=== PATIENT | female | born 1955 | race African-American/Black ===

== ENCOUNTER 2025-01-07 00:22 | Emergency (ER) | payer MEDICARE, SELFPAY ==
[2025-01-07 00:58] VITALS: BP 106/68; BP 121/72; PULSE 67; RESP 16; TEMP 36.4; O2SAT 100; BMI 22.7
--- NOTE | 2025-01-07 00:58 | ECG_ITS ---
Test Reason : SYNCOPE Blood Pressure : */* mmHG Vent. Rate : 69 BPM Atrial Rate : 69 BPM P-R Int : 188 ms QRS Dur : 80 ms QT Int : 432 ms P-R-T Axes : 74 65 82 degrees QTcB Int : 462 ms Normal sinus rhythm Normal ECG No previous ECGs available Referred By: Generic ED Physician Electronically Signed By: Elliot Acuna
--- NOTE | 2025-01-07 01:11 | ED_ITS ---
HPI - Syncope General Chief Complaint: Syncope Stated Complaint: Syncope, incontinent, diarrhea all day Time Seen by Provider: 01/07/25 01:09 Source: patient Mode of arrival: ambulatory Limitations: no limitations History of Present Illness ED Provider: HPI narrative: Patient history of pancreatic insufficiency, asthma constipated for last 1 week took Dulcolax and had about 5 or 6 loose bowels today was standing in the kitchen fell lightheaded almost passed out [employer]SI[employer]IST was next to the patient who lowered her down patient just feel weak denied any abdominal pain no chest pain no nausea no headache no palpitation Related Data Allergies Allergy/AdvReac Type Severity Reaction Status Date / Time No Known Allergies Allergy Verified 01/07/25 01:02 Review of Systems 2 Review of Systems: Yes all other systems are reviewed and are negative [facility] Past Medical History Medical History (Updated 01/08/25 @ 00:01 by Background Daemon) IBS (irritable bowel syndrome) Lyme disease Social History Social History Alcohol intake: current Alcohol intake frequency: holidays/special occasions only Alcohol type: wine Smoked in Last 30 Days: No Use of substances other than those prescribed or required for medical reasons: No Advance Directives: No Advance Directives Information Provided: Yes Do you have a plan to hurt others: No Plan Physical Exam 2 Vital Signs: Vital Signs: Last Vital Signs Temp 97.7 F 01/07/25 06:01 Pulse 72 01/07/25 06:01 Resp 12 01/07/25 06:01 BP 104/61 01/07/25 06:01 Pulse Ox 97 01/07/25 06:01 O2 Del Method Room Air 01/07/25 06:01 BMI result Body Mass Index 22.7 Appearance: Alert. Oriented X3. No acute distress. Eyes: PERRLA, No Nystagmus ENT: Pharynx normal. Oral Mucosa moist Neck: Normal inspection. Neck supple. CVS: Normal heart rate and rhythm. Pulses normal. Respiratory: No respiratory distress. Equal air entry bilateral, no wheezing/rales/rhonchi Abdomen: Soft and nontender. Bowel sounds are present, no mass palpable, no CVA tenderness Skin: Skin warm and dry. Normal skin color. Normal skin turgor. Extremities: No lower extremity edema. No calf tenderness Neuro: Oriented X 3. No motor deficit. No sensory deficit.No cerebellar signs , cranial nerves II-XII intact Medications Administered Discontinued Medications Generic Name Dose Route Start Last Admin Trade Name Neisha PRN Reason Stop Dose Admin Sodium Chloride 1,000 mls @ 999 mls/hr 01/07/25 02:20 01/07/25 04:00 Ns IV 01/07/25 03:20 Infused .Q1H1M ONE Infusion Medical Decision Making Medical Decision Making [facility] Narrative: No signs of injury labs are stable likely vasovagal will discharge patient Lab Data [facility] Lab Attestation statement: I reviewed the patient's lab results. 01/07/25 01:29 01/07/25 01:29 Labs: Lab Results 01/07/25 01/07/25 Range/Units 01:29 02:45 WBC 10.0 (4.8-10.8) X10*3/uL RBC 4.32 (4.20-5.50) X10*6/uL Hgb 13.3 (12.0-16.0) g/dl Hct 40.2 (37.0-47.0) % MCV 93.1 (80.0-98.0) fL MCH 30.8 (27.0-33.0) pg MCHC 33.1 (31.0-35.0) g/dl RDW 14.6 (11.0-16.0) % Plt Count 237 (160-400) X10*3/uL MPV 9.1 L (9.4-12.3) fL Immature Gran % (Auto) 0.2 (0.0-0.4) % Neut % (Auto) 63.7 (45-73) % Lymph % (Auto) 24.2 (20-40) % [place] % (Auto) 9.4 (2-11) % Eos % (Auto) 2.2 (0-4) % Baso % (Auto) 0.3 (0-2) % Lymph # (Auto) 2.4 (1.2-4.9) X10*3/uL [place] # (Auto) 0.9 (0.1-1.2) X10*3/uL Eos # (Auto) 0.2 (0.0-0.4) X10*3/uL Baso # (Auto) 0.0 (0.0-0.2) X10*3/uL Abs Immat Gran (auto) 0.02 (0.00-0.03) X10*3/uL Absolute Neuts (auto) 6.4 (2.0-8.3) x10*3/uL Absolute Nucleated RBC 0.000 (0.0-0.012) X10*3/uL Nucleated RBC % (auto) 0.0 (0.0-0.2) /100WBC Sodium 140 (135-145) mmol/L Potassium 3.9 (3.3-5.1) mmol/L Chloride 109 H (96-108) mmol/L Carbon Dioxide 22 (22-29) mmol/L Anion Gap 13 (12-20) BUN 21 H (9-16) mg/dL Creatinine 0.94 (0.5-1.4) mg/dL Estim Creat Clear Calc 52.1 Estimated GFR 59 Random Glucose 114 (60-115) mg/dL Calcium 9.6 (8.4-10.2) mg/dL Total Bilirubin 0.3 (0.0-1.0) mg/dL AST 27 (5-31) U/L ALT 12 (0-31) U/L Alkaline Phosphatase 89 (39-117) U/L Total Protein 8.1 H (6.5-8.0) g/dL Albumin 3.8 (3.5-5.0) g/dL Urine Color Yellow Urine Appearance Cloudy Urine pH 5.5 (5.0-9.0) Ur Specific Goff 1.015 (1.005-1.025) Urine Protein Negative (Neg-Trace) mg/dL Urine Glucose (UA) Negative (Negative) mg/dL Urine Ketones Negative (Negative) mg/dL Urine Blood Negative (Negative) Urine Nitrite Negative (Negative) Ur Leukocyte Esterase Moderate (2+) H (Negative) Urine RBC 0-2 (0-2) /HPF Urine WBC 11-20 (0-5) /HPF Ur Squamous Epith Cells 6-10 (0-2) /HPF Calcium Oxalate Crystal Present Urine Bacteria 2+ (None Seen) Hyaline Casts 0-2 (0-2) /LPF Influenza Type A (PCR) NEGATIVE (Negative) Influenza Type B (PCR) NEGATIVE (Negative) RSV RNA Qual (PCR) NEGATIVE (Negative) SARS-CoV-2 RNA (RT-PCR) NEGATIVE (Negative) Discharge Plan Discharge Clinical Impression: Vasovagal syncope, Dehydration Patient Disposition: Home, Self-Care Instructions: Near Syncope (ED) Additional Instructions: Drink plenty of fluid You had low blood pressure as you had diarrhea and lost lot of fluids Report to ER if diarrhea continues Interventions: ED Discharge Assessment Last Done: 01/07/25 06:01 Discharge Date/Time: 01/07/25 06:38 Print Language: Wallisian
[2025-01-07 01:35] LABS: Basophils Percent Auto 0.3 % (0-2); Eosinophils Absolute Auto 0.2 X10*3/uL (0.0-0.4); Eosinophils Percent Auto 2.2 % (0-4); Hematocrit 40.2 % (37.0-47.0); Hemoglobin 13.3 g/dl (12.0-16.0); Imm Gran Abs Auto 0.02 X10*3/uL (0.00-0.03); Imm Gran Pct Auto 0.2 % (0.0-0.4); Lymphocytes Absolute Auto 2.4 X10*3/uL (1.2-4.9); Lymphocytes Percent Auto 24.2 % (20-40); MANUAL DIFF FLAG NO; Mean Corpuscular HGB Conc 33.1 g/dl (31.0-35.0); Mean Corpuscular Hemoglobin 30.8 pg (27.0-33.0); Mean Corpuscular Volume 93.1 fL (80.0-98.0); Mean Platelet Volume 9.1 fL (9.4-12.3); Monocytes Absolute Auto 0.9 X10*3/uL (0.1-1.2); Monocytes Percent Auto 9.4 % (2-11); Neutrophils Absolute Auto 6.4 x10*3/uL (2.0-8.3); Neutrophils Percent Auto 63.7 % (45-73); Platelet Count 237 X10*3/uL (160-400); Red Blood Count 4.32 X10*6/uL (4.20-5.50); Red Cell Distribution Width 14.6 % (11.0-16.0)
[2025-01-07 01:58] LABS: Alanine Aminotransferase 12 U/L (0-31); Albumin Level 3.8 g/dL (3.5-5.0); Anion Gap 13 (12-20); Aspartate Amino Transferase 27 U/L (5-31); Bilirubin Total 0.3 mg/dL (0.0-1.0); Blood Urea Nitrogen 21 mg/dL (9-16); Calcium 9.6 mg/dL (8.4-10.2); Carbon Dioxide 22 mmol/L (22-29); Chloride 109 mmol/L (96-108); Creatinine Clr Calc Pharmacy 52.1; Estimated Glomerular Filt Rate 59; Glucose Random 114 mg/dL (60-115); Potassium 3.9 mmol/L (3.3-5.1); Sodium 140 mmol/L (135-145); Total Protein 8.1 g/dL (6.5-8.0)
[2025-01-07 02:19] LABS: Influenza A PCR NEGATIVE (Negative); Influenza B PCR NEGATIVE (Negative); Resp Syncy Virus RNA Qual PCR NEGATIVE (Negative); SARS COV2 PCR INHOUSE NEGATIVE (Negative)
[2025-01-07 02:31] VITALS: BP 103/63; BP 82/51; BP 92/59; PULSE 68; PULSE 73
[2025-01-07 02:39] LABS: Alkaline Phosphatase 89 U/L (39-117)
[2025-01-07 02:41] VITALS: O2SAT 100
[2025-01-07] MEDS: 0.9 % Sodium Chloride 1,000 ML 999 ML IV (02:46)
[2025-01-07 02:50] VITALS: BP 121/71; PULSE 61; RESP 12; TEMP 36.9; O2SAT 98
[2025-01-07 02:53] LABS: Appearance Urine Cloudy; Color Urine Yellow; Glucose Urine UA Negative (Negative); Leukocyte Esterase Urine Moderate (2+) (Negative); Nitrite Urine Negative (Negative); PH 5.5 (5.0-9.0); Specific Gravity - Urine 1.015 (1.005-1.025); UMIC TRIGGER UACC YES; Urine Blood Negative (Negative); Urine Ketones Negative (Negative); Urine Protein Negative (Neg-Trace)
[2025-01-07 03:04] VITALS: PULSE 64
[2025-01-07 03:22] LABS: Bacteria Urine 2+ (None Seen); Calcium Oxalate Crystals Urine Present; Hyaline Casts Urine 0-2 /LPF (0-2); RBC Urine 0-2 /HPF (0-2); UACC Culture Trigger YES
--- OUTSIDE RECORDS SUMMARY | 2025-01-07 03:36 | XMS_ITS | Encounter Summary ---
Author Organization [facility] Address [address] [place] [id number] Care Team Providers Care Clinical Medical Transcriptionist Name Role Phone Donna Starks OBI Primary Care Provider Jamie Cedillo MD Unavailable Kaitlin Zayas APRN Unavailable Nayeli Tucker [facility] Unavailable [phone] Reason for Visit * Reason Onset Date Comments Medication Refill 08/15/2024 Encounter Details Date Type Department Care Team (Late st Contact Info) Description 08/15/2024 Refill [facility] Geriatric[facility] [address] [place] [phone] Jamie Cedillo MD [address] [place] [id number] nutritional deficiency Social History Tobacco Use Types Packs/Day Years Used Date Smoking Tobacco: Never Smokeless Tobacco: Never Alcohol Use Standard Drinks/Week Comments Not Currently 0 (1 standard drink = 0.6 oz pur e alcohol) rarely AUDIT-C Answer Date Recorded Q1: How often do you have a drink containing alcohol? Never 05/24/2024 Q2: How many drinks containi ng alcohol do you have on a typical day when you are drinking? Patient does not drink Q3: How often do you have si x or more drinks on one occasion? Never 05/24/2024 PHQ-2 Answer Date Recorded PHQ-2 Total Score 1 02/23/2024 Sex and Gender Information Value Date Recorded Sex Assigned at Female 11/10/2024 4:52 PM EST Gender Identity Female 12/16/2022 2:55 PM EST Sexual Orientation Choose not to disclose 2022 2:55 PM EST documented as of this encounter Plan of Treatment Upcoming Encounters Date Type Department Care Team (Late st Contact Info) Description 03/07/2025 10:00 AM EDT Telemedicine [facility] [address] [facility] [address] [place] [address] Kartik Gomes MD [address] [facility] [address] [place] [address] documented as of this encounter Visit Diagnoses Diagnosis B12 nutritional deficiency Other B-complex deficiencies documented in this encounter Care Teams Clinical Medical Transcriptionist Relationship Specialty Start Date End Date Donna Starks APRN [address] [place] [address] PCP - General Family Medicine 10/13/22 Jamie Cedillo MD [address] [place] [address] Geriatric Medicine 03/01/24 Kaitlin Zayas APRN [address] [place] [address] Nurse Practitioner Psychiatry, General 05/24/24 Nayeli Tucker LCSW [address] [place], [place] [phone] Computer Hardware Engineer Social Work 11/15/24 documented as of this encounter
--- OUTSIDE RECORDS SUMMARY | 2025-01-07 03:36 | XMS_ITS | Clinical Summary ---
Author Organization [facility] Address [address] [place] [address] Care Team Providers Care Offline Editor Name Role Phone Donna Starks APRN Primary Care Provider [phone] Jamie Cedillo MD Unavailable [phone] Kaitlin Zayas APRN Unavailable Nayeli Tucker LCSW Unavailable Allergies No known active allergies Medications Medication Sig Dispensed Refills Start Date End Date Status saccharomyces boulardii (FLORASTOR) 250 MG capsule Take 1 capsule (250 mg total) by mouth every day after lunch. Active multivitamin Tab tablet Take 1 tablet by mouth every morning. Active CALCIUM MAGNESIUM 750 PO Take 1 tablet by mouth every morning. Active baclofen (LIORESAL) 10 MG tabletIndications :Arthritis of left hip Take 1 tablet (10 mg total) by mouth 3 (three) times a day as needed for muscle spasms. 42 tablet 2 Active acetaminophen (TYLENOL) 325 MG tabletIndications :Arthritis of left hip Take 3 tablets (975 mg total) by mouth every 8 (eight) hours around the clock. Change to as needed after 2 weeks for mild pain/fever as pain control improves. 270 tablet 2 Active aspirin enteric coated (ECOTRIN LOW STRENGTH) 81 MG EC tabletIndications :Arthritis of left hip Take 1 tablet (81 mg total) by mouth every evening with dinner. Do not start before May 11, 2022. 2 Active senna-docusate (SENNA-S) 8.6-50 MGIndications:Art hritis of left hip Take 2 tablets by mouth nightly. Take as directed while using narcotic pain medication. Hold for loose stool. 60 tablet 3 Active fluticasone (FloNASE) 50 mcg/spray nasal sprayIndications: Moderate persistent asthma without complication 1 spray into each nostril 2 (two) times a day. 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 5 mL 1 3 Active albuterol (PROAIR RESPICLICK) 108 (90 Base) MCG/ACT inhalerIndication s:Moderate persistent asthma without complication Inhale 1 puff 4 times daily (every 6 hours) as needed for wheezing. Rarely uses 1 each 3 3 Active sodium-potassium- magnesium sulfates (Suprep Bowel Prep Kit) 17.5-3.13-1.6 GM/177ML Solution solutionIndicatio ns:Colon cancer screening Follow directions provided by physician's office. 354 mL 4 Active potassium phosphate and sodium phosphate (PHOS-NAK) 280-160-250 MG Pack packet Take by mouth. Active cyanocobalamin (VITAMIN B-12) 500 MCG tabletIndications :B12 nutritional deficiency Take 1 tablet (500 mcg total) by mouth daily. 90 tablet 4 Active fluticasone-salme terol (Advair HFA) 230-21 MCG/ACT inhalerIndication s:Moderate persistent asthma without complication Inhale 1 puff 2 (two) times a day. 12 g 1 4 Active Trintellix 20 MG tabletIndications :Attention deficit hyperactivity disorder (ADHD), predominantly inattentive type TAKE ONE TABLET BY MOUTH DAILY 90 tablet 2 4 Active amLODIPine (NORVASC) 5 MG tabletIndications :Raynaud's Disease Take 1 tablet (5 mg total) by mouth nightly. 90 tablet 1 4 Active vitamin B complex (b complex vitamins) capsuleIndication s:Severe episode of recurrent major depressive disorder, with psychotic features (HCC) Take 1 capsule by mouth every morning. Pt takes liquid 30 capsule 4 Active amphetamine-dextr oamphetamine (ADDERALL) 20 MG tabletIndications :Attention deficit hyperactivity disorder (ADHD), predominantly inattentive type Take 1 tablet (20 mg total) by mouth 2 (two) times a day. Max Daily Amount: 40 mg 60 tablet 4 Active buPROPion (WELLBUTRIN XL) 150 MG 24 hr tabletIndications :Depression, unspecified depression type Take 1 tablet (150 mg total) by mouth every morning. Swallow whole; do not crush, chew, or divide. 60 tablet 1 4 Active traZODone (DESYREL) 50 MG tabletIndications :Insomnia, unspecified type Take 1 tablet (50 mg total) by mouth nightly. Take 1/2 tab (25mg) at bedtime. Take an additional 1/2 tab (25mg) if needed. 90 tablet 1 5 Active QUEtiapine (SEROquel) 25 MG tabletIndications :Insomnia, unspecified type,Severe episode of recurrent major depressive disorder, with psychotic features (HCC) Take 1 tablet (25 mg total) by mouth nightly. 90 tablet 1 5 Active cloNIDine (CATAPRES) 0.2 MG tabletIndications :Anxiety disorder, unspecified type Take 1 tablet (0.2 mg total) by mouth daily on an empty stomach. 30 tablet 1 5 Active plecanatide (TRULANCE) 3 MG tabletIndications :Irritable bowel syndrome with constipation Take 1 tablet (3 mg total) by mouth daily. 30 tablet 3 5 Active prucalopride succinate (MOTEGRITY) 2 MG tabletIndications :Constipation, unspecified constipation type Take 1 tablet (2 mg total) by mouth daily. 30 tablet 3 12/28/19 25 Discontinued traZODone (DESYREL) 50 MG tabletIndications :Insomnia, unspecified type Take 1 tablet (50 mg total) by mouth nightly. Take 1/2 tab (25mg) at bedtime. Take an additional 1/2 tab (25mg) if needed. 90 tablet 1 4 12/16/19 25 Discontinued(Re order) QUEtiapine (SEROquel) 25 MG tabletIndications :Insomnia, unspecified type,Severe episode of recurrent major depressive disorder, with psychotic features (HCC) Take 1 tablet (25 mg total) by mouth nightly. 90 tablet 1 4 12/16/19 25 Discontinued(Re order) prucalopride succinate (Motegrity) 2 MG tablet Take 1 tablet (2 mg total) by mouth daily. 12/28/19 Discontinued cloNIDine (CATAPRES) 0.2 MG tabletIndications :Anxiety disorder, unspecified type TAKE 1 TABLET BY MOUTH DAILY ON AN EMPTY STOMACH 30 tablet 1 4 12/22/19 25 Discontinued(Re order) Tenapanor HCl (IBSRELA) 50 MG tabletIndications :Irritable bowel syndrome with constipation Take 1 tablet (50 mg total) by mouth 2 (two) times a day. Take immediately prior to breakfast or the first meal of the day and immediately prior to dinner 180 tablet 5 12/28/19 25 Discontinued Active Problems Problem Noted Date Diagnosed Date Short-term memory loss 04/29/2023 Constipation 04/29/2023 Assessment & Plan (10/12/2024 10:15 PM EST): Recommend increasing hydration and taking more fiber in diet. Assessment & Plan (04/29/2023 9:03 AM EDT): Jane has chronic constipation unrelieved with OTC treatment. Will start a trial of amitiza Essential hypertension 04/16/2023 Overview (10/12/2024): . Assessment & Plan (10/12/2024 10:12 PM EST): Blood pressure is normal. No side effects. Renal function is stable. Patient will continue amlodipine. DASH diet Recommend a minimum of 150 minutes of exercise a week. Assessment & Plan (02/14/2024 7:07 PM EDT): Stable. Blood pressure is normal. No side effects. Patient will continue with current regimen. DASH diet Recommend a minium of 150 minutes of exercise a week. Assessment & Plan (10/15/2023 4:00 PM EST): Blood pressure is normal. No side effects. Patient will continue with current regimen. DASH diet Recommend a minium of 150 minutes of exercise a week. Assessment & Plan (04/16/2023 12:14 PM EDT): Blood pressure is normal. No side effects. Patient will continue with current regimen. DASH diet Recommend a minium of 150 minutes of exercise a week. Migraine headache 10/13/2022 S/P bilateral hip replacements 10/13/2022 Raynaud's syndrome without gangrene 05/10/2022 Assessment & Plan (10/12/2024 10:10 PM EST): Cancer demonstrating stocking syndrome.. Lifestyle and keeping extremities warm at all times. Will continue to thank Chronic primary angle-closur e glaucoma of both eyes, mild stage 05/10/2022 Assessment & Plan (04/16/2023 10:39 AM EDT): She will continue to see her retina specialist. Unspecified glaucoma 05/10/2022 Arthritis of left hip 05/09/2022 Anxiety disorder, unspecified 05/09/2022 Primary generalized (osteo)arthritis 05/09/2022 Stress incontinence (female) (male) 05/09/2022 Unspecified asthma, uncomplicated 05/09/2022 Assessment & Plan (10/12/2024 10:07 PM EST): Stable on Advair and as needed albuterol. Assessment & Plan (02/14/2024 7:06 PM EDT): Stable on current regimen. Assessment & Plan (10/15/2023 4:00 PM EST): Table on Flovent. Assessment & Plan (04/16/2023 12:14 PM EDT): Felicity reports increased use of her rescue inhaler minimal 4 days a week. At this time will restart Flovent. Arthritis of right hip 02/17/2022 Recurrent major depressive disorder, in remissio n 11/30/2021 Assessment & Plan (02/14/2024 7:07 PM EDT): Jane remains stable on Trintellix. Assessment & Plan (10/15/2023 4:01 PM EST): Stable we will continue Trintellix daily. Assessment & Plan (04/29/2023 9:04 AM EDT): PHQ-9 total Score 10 JASON-7 total score 6. Assessment & Plan (04/16/2023 12:15 PM EDT): PHQ-9 Total Score: (!) 10 JASON-7 Total Score: 6 Felicity is reporting increased depressed thoughts. This time will increase Trintellix to 15 mg daily. Recommend talk therapy Follow-up in 3 months. Attention-deficit hyperactivity disorder, unspec ified type 11/30/2021 Assessment & Plan (10/12/2024 10:17 PM EST): She will talk to night stable on Adderall. Assessment & Plan (10/15/2023 4:01 PM EST): Stable on Adderall. Depression, unspecified 11/30/2021 Lyme disease, unspecified 11/30/2019 Encounters Date Type Department Care Team Description 12/28/2024 Orders Only [facility] [address] [place] [address] Patience Alaniz APRN Irritable bowel syndrome with constipation (Primary Dx) 12/27/2024 Telephone [facility] [address] [place] [address] Patience Alaniz APRN 12/22/[address] [place] [address] RaudelDonna OBI Sood Anxiety disorder, unspecified type 12/20/2024 10:30 AM EST Office Visit [facility] [address] [place] [address] Patience Alaniz APRN Irritable bowel syndrome with constipation (Primary Dx); Colon cancer screening; Bloating; Dysphagia, unspecified type; Lower abdominal pain 12/20/2024 Orders Only [facility] [address] [facility] [address] Patience Alaniz APRN 11/14/2024 9:00 AM EST Office Visit [facility] [address] [phone] Kaitlin Zayas APRN Depression, unspecified depression type (Primary Dx); Anxiety; Attention deficit hyperactivity disorder (ADHD), unspecified ADHD type; Caregiver burden; Subjective memory complaints; Insomnia, unspecified type 11/14/2024 Travel 10/24/[address] [place] [address] Donna Starks, OBI Anxiety disorder, unspecified type 10/22/[address] [phone] Donna Starks, EMPLOYMENT EVALUATOR/CASE MANAGER Anxiety disorder, unspecified type 10/20/2024 Scanned Document [address] [address] Donna StarksGALAN 10/12/2024 9:45 AM EST Office Visit [address] [place] [phone] Donna Starks Barrie, EMPLOYMENT EVALUATOR/CASE MANAGER Bilateral leg cramps (Primary Dx); Attention deficit hyperactivity disorder (ADHD), predominantly inattentive type; Essential hypertension; Mild intermittent asthma without complication; Raynaud's syndrome without gangrene; Constipation, unspecified constipation type 10/12/2024 Travel from Last 3 Months Immunizations Name Administration Dates Next Due Covid-19 MRNA Primary Series Vaccine - Pfizer 12+ Demarcus-Sucrose 02/10/2022 Covid-19 MRNA Vaccine - Pfiz er 12+ (Purple Cap) 09/13/2021,03/04/2021,02/11/2021,2020,01/05/2021 Influenza (AFLURIA/FLUZONE) Inactivated/Split Quadrivalent with Preservative IM 09/13/2021,09/01/2020 Influenza Inactivated/Split Preservative Free IM 08/08/2022 Pneumococcal Conjugate 20-Valent 02/10/2022 Family History Medical History Relation Name Comments Cancer Brother testicular Heart attack Father Stroke Father Alzheimer's disease Mother Deep vein thrombosis Mother Kidney disease Mother Pancreatic cancer Mother Thyroid disease Mother Relation Name Status Comments Brother Alive Father Alive Mother Sister Alive Social History Tobacco Use Types Packs/Day Years Used Date Smoking Tobacco: Never Smokeless Tobacco: Never Tobacco Cessation:Counseling Given: Not Answered Alcohol Use Standard Drinks/Week Comments Not Currently [...] not to disclose 2022 2:55 PM EST Last Filed Vital Signs Vital Sign Reading Time Taken Comments Blood Pressure 111/62 12/20/2024 10:47 AM EST Pulse 88 10/12/2024 9:56 AM EST Temperature 36.2 ??C (97.1 ??F) 10/12/2024 9:56 AM ES T Respiratory Rate 18 10/12/2024 9:56 AM EST Oxygen Saturation 99% 10/12/2024 9:56 AM EST Inhaled Oxygen Concentration - - Weight 63.5 kg (140 lb) 12/20/2024 10:47 AM EST Height 167.6 cm (5' 6 ) 12/20/2024 10:47 AM EST Body Mass Index 22.6 12/20/2024 10:47 AM EST Plan of Treatment Upcoming Encounters Date Type Department Care Team (Late st Contact Info) Description 03/07/2025 10:00 AM EDT Telemedicine [facility] [address] [phone] Kartik Gomes MD [address] [facility] [address] [place] [address] Health Maintenance Due Date Last Done Comments Physical 1972 DTaP/Tdap/Td Vaccines (1 - Tdap) 1973 Zoster (Shingles) Vaccine (1 of 2) 2004 RSV Vaccine 60 years and older and Patients (1 - Risk 60-74 years 1-dose series) 2014 Annual Wellness Visit 12/18/2023 12/17/2022, 022 Influenza Vaccine 06/30/2024 08/08/2022, , 09/01/2020 COVID-19 Vaccine ( season) 2024 02/10/2022, 09/13/2021, 03/04/2021, Additional history exists DXA Bone Density (Females,Ages 65 and older) 04/01/2026 04/01/2024, 12/03/2022 (Previously Completed) Mammogram 04/01/2026 04/01/2024, 02/0 01/2023, 12/03/2022 (Previously Completed) Colonoscopy 09/14/2034 09/14/2024, 01/22/2024 Pneumococcal Vaccines 50+ Completed 02/10/2022 Hepatitis C Virus Screening Completed 03/08/2024 Hepatitis B Vaccines Aged Out No long er eligible based on patient's age to complete this topic Goals Goal Patient Goal Type Associated Problems Recent Progress Patient-Stated? Author Patient-Stated Goal: I sometimes ruminate about dark in the winter. Care Plan Need for Continued Psychiatric Medication Management No Carucci, Pari Krupa Patient will report symptoms have been significantly reduced and no longer interfere with their functioning, symptoms will have been stabilized without the need for a higher level of care for at least one year. Care Plan Need for Continued Psychiatric Medication Management Pari Swanson Patient-reported Measure Care Plan Need for Continued Psychiatric Medication Management Pari Swanson Note: Patient will report at least a 1 point increase on the MARS-12 outcome measure item (#1) I am hopeful about the future on the next administration of the measure. Patient will verbalize a commitment to engage in 1 or more positive activities over the next 3 months and report progress in the future appointments Frequency: Every 12 weeks or earlier if clinically indicated Duration: 20-60 minute appointment Modality: Medication Management Will identify and work to reduce the impact of symptoms on functioning by focusing on recovery and assisting the patient in making informed decisions regarding the treatment options Care Plan Need for Continued Psychiatric Medication Management No Pari Ramon Note: ?? Frequency: Every 12 weeks or earlier if clinically indicated ?? Duration: 20-60 minute appointment ?? Modality: Medication Management Applies to all interventions, unless otherwise indicated Develop a healthy, rewarding, day-to-day pattern of activities and sleep that leads to the alleviation of, and helps prevent the relapse of, mood episodes. Care Plan Need for Continued Psychiatric Medication Management Pari Swanson Note: Frequency: every 12 weeks or earlier if clinically indicated Duration: 30-minute appointment Modality: med management Medical Devices Implanted Type Area Environmental Educator Device Identifier Shelf Expiration Date Model / Serial / Lot 723-10-36e Trident 10 X 3 Insert 36mm Id - [id number] Implanted:Qty : 1 on 02/17/2022 by Juan Cast MD at [facility] Joint Prosthesis Right: Hip [employer] 04/18/2026 723-10-3 6E / / [id number] 702-04-52e Shell Acetabular 52mm Hip Ch Tritanium Trdnt 2 E Sterl - [id number] Implanted:Qty : 1 on 02/17/2022 by Juan Cast MD at [facility] Joint Prosthesis Right: Hip [employer] 11/11/2026 702-04-5 2E / / [id number] Stem Femoral 105mm Pf Acld 2 V40 Purefix Ti 127d 4 42mm High - [id number] Implanted:Qty : 1 on 02/17/2022 by Juan Cast MD at [facility] Joint Prosthesis Right: Hip [employer] 01/14/2027 6721-043 5 / / [id number] 6570-0-436 Head Femoral -2.5mm Offset Taper 36mm Hip Blx D V40 Sterl - [id number] Implanted:Qty : 1 on 02/17/2022 by Juan Cast MD at [facility] Joint Prosthesis Right: Hip [employer] 08/22/2026 6570-0-4 36 / / [id number] 702-04-52e Shell Acetabular 52mm Hip Ch Tritanium Trdnt 2 E Sterl - [id number] Implanted:Qty : 1 on 05/09/2022 by Juan Cast MD at [facility] Joint Prosthesis Left: Hip [employer] 01/30/2027 702-04-5 2E / / [id number] 723-10-36e Insert Acetabular 36mm 10d E Hip X3 Trdnt - [id number] Implanted:Qty : 1 on 05/09/2022 by Juan Cast MD at [facility] Joint Prosthesis Left: Hip [employer] 03/18/2027 723-10-3 6E / / [id number] Stem Femoral 105mm Pf Acld 2 V40 Purefix Ti 127d 4 42mm High - [id number] Implanted:Qty : 1 on 05/09/2022 by Juan Cast MD at [facility] Joint Prosthesis Left: Hip [employer] 04/01/2027 6721-043 5 / / [id number] 6570-0-136 Head Femoral +0mm Offset Taper 36mm Hip Blx D V40 Sterl - [id number] Implanted:Qty : 1 on 05/09/2022 by Juan Cast MD at [facility] Joint Prosthesis Left: Hip [employer] 02/04/2027 6570-0-1 36 / / [id number] Screw Bone Trdnt 2 35mm 6.5mm Lp Hex Sterl - [id number] Implanted:Qty : 1 on 02/17/2022 by Juan Cast MD at [facility] Screw Right: Hip [employer] [id number] 08/26/2026 7030-653 5 / / [id number] Screw Implanted:Qty : 1 on 05/09/2022 by Juan Cast MD at [facility] Left: Hip [employer] 09/07/2023 7030-654 0 / / [id number] Procedures Procedure Name Priority Date/Time Associated Diagnosis Comments XR ABDOMEN SINGLE VIEW KUB Routine 12/20/2024 12:19 PM EST BREATH HYDROGEN TEST Routine 12/07/2024 3:39 PM EST MM MAMMO SCREENING W/ TOMOSYNTHESIS BILATERAL Routine 04/01/2024 11:54 AM EDT Encounter for screening mammogram for malignant neoplasm of breast DEXA BONE DENSITY HIP/PELVIS/SPINE W/FX EVAL Routine 04/01/2024 11:36 AM EDT Encounter for osteoporosis screening in asymptomatic postmenopausal patient HEPATITIS C VIRUS (HCV) ANTIBODY Routine 03/08/2024 2:54 PM EDT Subjective memory complaints HX GASTROENTEROLOGY COLONOSCOPY-SCAN Routine 01/22/2024 from Last 3 Months or Most Recently Relevant to Health Maintenance Results * XR ABDOMEN SINGLE VIEW KUB (12/20/2024 12:19 PM EST) Anatomical Region Laterality Modality Other 12/20/2024 11:4 5 AM EST 12/20/2024 11:45 AM EST Impressions 12/24/2024 5:49 PM EST Moderate amount of stool seen throughout the colon to the rectum. No bowel dilatation. Electronically signed by: ??Justin Aquino MD ??12/24/2024 05:49 PM EST RP Thank you for referring your patient to us, Justin Aquino [phone] (Electronically Signed - 12/24/2024 17:49) Copy: DONNA STARKS OBI [facility] [address] [place] [address] PATIENT , ?? Narrative 12/24/2024 5:49 PM EST EXAMINATION: XR ABDOMEN KUB CLINICAL INDICATION: Constipation, unspecified K59.00. COMPARISON: None available TECHNIQUE: 2 views of the abdomen and pelvis of the abdomen. FINDINGS: There is bilateral total hip prosthesis partially imaged. There is a moderate amount of stool seen throughout the colon to the rectum. No bowel dilatation. No abnormal calcifications. No obvious organomegaly. The upper abdomen and lung bases are not included on the current exam. Procedure Note Justin Aquino MD - 12/24/2024 EXAMINATION: XR ABDOMEN KUB CLINICAL INDICATION: Constipation, unspecified K59.00. COMPARISON: None available TECHNIQUE: 2 views of the abdomen and pelvis of the abdomen. FINDINGS: There is bilateral total hip prosthesis partially imaged. There is amoderate amount of stool seen throughout the colon to the rectum. No boweldilatation. No abnormal calcifications. No obvious organomegaly. The upperabdomen and lung bases are not included on the current exam. IMPRESSION: Moderate amount of stool seen throughout the colon to the rectum. No boweldilatation. Electronically signed by: Justin Aquino MD 12/24/2024 05:49 PM EST RPWorkstation: [id number] Thank you for referring your patient to us, Justin Aquino [phone] (Electronically Signed - 12/24/2024 17:49) Copy: DONNA STARKS OBI [facility] [address] [place] [address] PATIENT , Patience Alaniz EMPLOYMENT EVALUATOR/CASE MANAGER IMG LEGACY PROCEDU RES * Breath hydrogen test (12/07/2024 3:39 PM EST) External Provider MD CELESTIN PROCEDURE ORDERA BLES * MM Breast tomosynthesis screening-Bilateral (04/01/2024 11:54 AM EDT) Anatomical Region Laterality Modality Breast Bilateral Mammography 04/01/2024 12:4 5 PM EDT 04/01/2024 12:45 PM EDT Impressions 04/08/2024 12:01 PM EDT There is no mammographic evidence of malignancy. Routine follow-up mammogram in 1 year is recommended. The patient will receive a lay summary of the results of this breast imaging exam. Lay summaries for mammography examinations will also identify the patients personal breast tissue composition as required by state law. BIRADS Category 1: Negative Thank you for referring your patient to us, Marichuy Millard MD [phone] (Electronically Signed - 04/08/2024 12:01) Copy: PATIENT , ?? PROVIDER NOT IN DICTIONARY , ?? Narrative 04/08/2024 12:01 PM EDT HISTORY: Patient is 68 years old and is seen for screening. The patient has a history of right stereotactic core biopsy in 2016 - benign. ??The patient has no personal history of breast or ovarian cancer. The patient has no family history of breast cancer. FILMS COMPARED: The present examination has been compared to prior imaging studies dated 06/05/2021 and 12/17/2022. RAJ STATEMENT: Computer-aided detection was utilized by the radiologist in the interpretation of this examination. 3D tomosynthesis digital mammographic images were obtained using standard projections. MAMMOGRAM FINDINGS: The breasts are heterogeneously dense, which may obscure small masses. (ACR BIRADS density Category c) * No suspicious masses, calcifications or other abnormalities are seen in either breast. Procedure Note Marichuy Millard MD - 04/08/2024 HISTORY: Patient is 68 years old and is seen for screening. The patient has a history of right stereotactic core biopsy in 2016 -benign. The patient has no personal history of breast or ovariancancer. The patient has no family history of breast cancer. FILMS COMPARED: The present examination has been compared to prior imaging studies dated06/05/2021 and 12/17/2022. RAJ STATEMENT: Computer-aided detection was utilized by the radiologist in theinterpretation of this examination. 3D tomosynthesis digital mammographic images were obtained using standardprojections. MAMMOGRAM FINDINGS: The breasts are heterogeneously dense, which may obscure small masses.(ACR BIRADS density Category c) * No suspicious masses, calcifications or other abnormalities are seen ineither breast. IMPRESSION: There is no mammographic evidence of malignancy. Routine follow-up mammogram in 1 year is recommended. The patient will receive a lay summary of the results of this breastimaging exam. Lay summaries for mammography examinations will alsoidentify the patients personal breast tissue composition as required bystate law. BIRADS Category 1: Negative Thank you for referring your patient to us, Marichuy Millard MD [phone] (Electronically Signed - 04/08/2024 12:01) Copy: PATIENT , PROVIDER NOT IN DICTIONARY , Donna Starks EMPLOYMENT EVALUATOR/CASE MANAGER IMG MAMMOGRAPHY ORDE SHAKEEL * DEXA Bone density-Hip/pelvis/spine w/fx eval (Axial) (04/01/2024 11:36 AM EDT) Anatomical Region Laterality Modality Digital Radiogra phy 04/01/2024 1:30 PM EDT 04/01/2024 1:30 PM EDT Impressions 04/04/2024 8:33 AM EDT 1. DIAGNOSIS: Normal bone density based on the lowest T-score value of -0.2 in the forearm radius 33% applying World Health Organization criteria. ?? 2. 10-YEAR FRACTURE RISK PREDICTION, FRAX: Not performed in this patient without a femoral neck BMD measurement. 3. Treatment Recommendations: NOF guidelines recommend consideration for treatment in postmenopausal women and men age 50 and older presenting with the following: -A hip or vertebral (clinical or morphometric) fracture. -T-score less than or equal to -2.5 at the femoral neck or spine after appropriate evaluation to exclude secondary causes. -Low bone mass at the hip or spine and a 10-year fracture probability by FRAX of greater than or equal to 3% for hip fracture or greater than or equal to 20% for major osteoporotic fracture based on the [place] adapted WHO algorithm. 4. Other Recommendations: All treatment decisions require clinical judgment and consideration of individual patient factors, including patient preferences, comorbidities, previous drug use, risk factors not captured in the FRAX model (e.g. frailty, falls, vitamin D deficiency, increased bone turnover, interval significant decline in bone density) and possible under or overestimation of fracture risk by FRAX. FUTURE SCAN RECOMMENDATION: People with diagnosed cases of osteoporosis or at high risk for fracture should have regular bone mineral density tests. For patients eligible for Medicare, routine testing is allowed once every 2 years. The testing frequency can be increased to one year for patients who have rapidly progressing disease, those who are receiving or discontinuing medical therapy to restore bone mass, or have additional risk factors. Thank you for referring your patient to us, Alec Rae MD [phone] (Electronically Signed - 04/04/2024 08:33) Narrative 04/04/2024 8:33 AM EDT EXAMINATION: BONE DENSITOMETRY CLINICAL INDICATION: Menopause. Screening for osteoporosis. COMPARISON: This is the patients baseline examination. TECHNIQUE: Using a TransitScreen DXA system (software version: 14.10) manufactured by [employer], dual-energy x-ray absorptiometry was performed of the lumbar spine and right forearm radius 33%. Patient with bilateral hip replacements. The images are of good technical quality. Summary results are attached. FINDINGS: AP SPINE L1-L4: BMD 1.197 g/cm2, Z-score 1.7, T-score 0.0, normal. RIGHT FOREARM RADIUS 33%: BMD 0.862 g/cm2, Z-score 1.6, T-score -0.2, normal. IDENTIFIED RISK FACTORS: Menopause, height loss, family history (parent hip fracture), secondary osteoporosis. HISTORY OF FRACTURE: None listed. MEDICATIONS: Calcium or multivitamin. Vitamin D. Procedure Note Alec Rae MD - 04/04/2024 EXAMINATION: BONE DENSITOMETRY CLINICAL INDICATION: Menopause. Screening for osteoporosis. COMPARISON: This is the patients baseline examination. TECHNIQUE: Using a TransitScreen DXA system (software version:14.10) manufactured by [employer], dual-energy x-ray absorptiometrywas performed of the lumbar spine and right forearm radius 33%. Patient with bilateral hip replacements. The images are of good technical quality.Summary results are attached. FINDINGS: AP SPINE L1-L4: BMD 1.197 g/cm2, Z-score 1.7, T-score 0.0, normal. RIGHT FOREARM RADIUS 33%: BMD 0.862 g/cm2, Z-score 1.6, T-score -0.2, normal. IDENTIFIED RISK FACTORS: Menopause, height loss, family history (parent hip fracture), secondary osteoporosis. HISTORY OF FRACTURE: None listed. MEDICATIONS: Calcium or multivitamin. Vitamin D. IMPRESSION: 1. DIAGNOSIS: Normal bone density based on the lowest T-score value of-0.2 in the forearm radius 33% applying World Health Organization criteria. 2. 10-YEAR FRACTURE RISK PREDICTION, FRAX: Not performed in this patient without a femoral neck BMD measurement. 3. Treatment Recommendations: NOF guidelines recommend consideration for treatment in postmenopausal women and men age 50 and older presenting withthe following: -A hip or vertebral (clinical or morphometric) fracture. -T-score less than or equal to -2.5 at the femoral neck or spine after appropriate evaluation to exclude secondary causes. -Low bone mass at the hip or spine and a 10-year fracture probability byFRAX of greater than or equal to 3% for hip fracture or greater than or equalto 20% for major osteoporotic fracture based on the [place] adapted WHOalgorithm. 4. Other Recommendations: All treatment decisions require clinicaljudgment and consideration of individual patient factors, including patient preferences, comorbidities, previous drug use, risk factors not capturedin the FRAX model (e.g. frailty, falls, vitamin D deficiency, increasedbone turnover, interval significant decline in bone density) and possible underor overestimation of fracture risk by FRAX. FUTURE SCAN RECOMMENDATION: People with diagnosed cases of osteoporosis or at high risk for fracture should have regular bone mineral density tests. For patients eligiblefor Medicare, routine testing is allowed once every 2 years. The testingfrequency can be increased to one year for patients who have rapidly progressing disease, those who are receiving or discontinuing medical therapy torestore bone mass, or have additional risk factors. Thank you for referring your patient to us, Alec Rae MD [id number] (Electronically Signed - 04/04/2024 08:33) Donna Starks EMPLOYMENT EVALUATOR/CASE MANAGER IMG DXA ORDERABLES * Hepatitis C Virus (HCV) Antibody (03/08/2024 2:54 PM EDT) Hepatitis C Antibody NON-REACT JADE NON-REACT JADE Foradian Comment: HCV antibody was non-reactive. There is no laboratory evidence of HCV infection. In most cases, no further action is required. However, if recent HCV exposure is suspected, a test for HCV RNA (test code 92636) is suggested. For additional information please refer to http://education.Kiva/faq/DTP71w8 (This link is being provided for informational/ educational purposes only.) Blood specimen (specimen) Blood specimen / Unknown 03/08/2024 2:54 PM EDT 03/08/2024 2:56 PM EDT Narrative [facility] - 03/12/2024 1:46 PM EDT FASTING:NO FASTING: NO Jamie Cedillo MD LAB BLOOD ORDERABLE S [facility] [employer] [address] [place] [phone] * HX GASTROENTEROLOGY COLONOSCOPY-SCAN (01/22/2024) Scan Gastroenterology HX AMB PROCEDURES from Last 3 Months or Most Recently Relevant to Health Maintenance Additional Health Concerns Active Problems Noted Date Diagnosed Date Need for Continued Psychiatric Medication Manage ment 09/28/2024 Advance Directives * Full Code (Latest Code Status on File) Date Activated Date Inactivated Comments 05/09/2022 10:42 AM * Full Code Date Activated Date Inactivated Comments 05/09/2022 5:52 AM 05/09/2022 10:42 AM * Full Code Date Activated Date Inactivated Comments 02/17/2022 11:55 AM 05/09/2022 5:33 AM Care Teams Offline Editor Relationship Specialty Start Date End Date Donna Starks APRN [address] [address] PCP - General Family Medicine 10/13/22 Jamie Cedillo MD [address] [place] [address] Geriatric Medicine 03/01/24 Kaitlin Zayas APRN [address] [place], [place] [id number] Nurse Practitioner Psychiatry, General 05/24/24 Nayeli Tucker LCSW [address] [place] [address] Recapper Social Work 11/15/24
--- OUTSIDE RECORDS SUMMARY | 2025-01-07 03:36 | XMS_ITS | Encounter Summary ---
Author Organization [facility] Address [address] [place] [address] Care Team Providers Care Scenario Writer Name Role Phone Donna Jean APRN Primary Care Provider Jamie Cedillo MD Unavailable [phone] Kaitlin Zayas APRN Unavailable Nayeli Tucker LCSW Unavailable [phone] Encounter Details Date Type Department Care Team (Late st Contact Info) Description 12/20/2024 Orders Only [facility] [address] [place] [address] Patience Alaniz APRN [address] [place] [address] Social History Tobacco Use Types Packs/Day Years [...] PM EST documented as of this encounter Progress Notes * Della Bernal MA - 12/20/2024 12:12 PM EST Called house phone and left a vm for a call back. After, I called pt cell phone. Pt was busy, pt stated that she will call me back. documented in this encounter Plan of Treatment Upcoming Encounters Date Type Department Care Team (Late st Contact Info) Description 03/07/2025 10:00 AM EDT Telemedicine [address] [phone] Kartik Gomes MD [address] [place] [phone] documented as of this encounter Goals Goal Patient Goal Type Associated Problems Recent Progress Patient-Stated? Author Patient-Stated Goal: I sometimes ruminate about dark in the winter. Care Plan Need for Continued Psychiatric Medication Management No Pari Ramon Patient will report symptoms have been significantly reduced and no longer interfere with their functioning, symptoms will have been stabilized without the need for a higher level of care for at least one year. Care Plan Need for Continued Psychiatric Medication Management No Pari Ramon Patient-reported Measure Care Plan Need for Continued [...] Psychiatric Medication Management No Pari Ramon Note: Frequency: every 12 weeks or earlier if clinically indicated Duration: 30-minute appointment Modality: med management documented as of this encounter Procedures Procedure Name Priority Date/Time Associated Diagnosis Comments XR ABDOMEN SINGLE VIEW KUB Routine 12/20/2024 12:19 PM EST BREATH HYDROGEN TEST Routine 12/07/2024 3:39 PM EST documented in this encounter Results * XR ABDOMEN SINGLE VIEW KUB (12/20/2024 12:19 PM EST) Anatomical Region Laterality Modality Other 12/20/2024 11:4 5 AM EST 12/20/2024 11:45 AM EST Impressions 12/24/2024 5:49 PM EST Moderate amount of stool seen throughout the colon to the rectum. No bowel dilatation. Electronically signed by: ??Justin Aquino MD ??12/24/2024 05:49 PM EST Thank you for referring your patient to us, Justin Aquino [phone] (Electronically Signed - 12/24/2024 17:49) Copy: DONNA JEAN OBI [facility]- ENPENDING SALE TO [facility] [address] [place] [address] PATIENT , ?? Narrative 12/24/2024 5:49 PM [...] the rectum. No boweldilatation. Electronically signed by: Jsutin Aquino MD 12/24/2024 05:49 PM EST RPWorkstation: [id number] Thank you for referring your patient to us, Justin Aquino [phone] (Electronically Signed - 12/24/2024 17:49) Copy: DONNA JEAN APRN [facility]- [facility] [address] [facility] [address] [place] [address] PATIENT , Patience Alaniz APRN G LEGACY PROCEDU RES * Breath hydrogen test (12/07/2024 3:39 PM EST) External Provider GI PROCEDURE ORDERA BLES documented in this encounter Visit Diagnoses Not on filedocumented in this encounter Additional Health Concerns Active Problems Noted Date Diagnosed Date Need for Continued Psychiatric Medication Manage ment 09/28/2024 documented as of this encounter Care Teams Scenario Writer Relationship Specialty Start Date End Date Donna Jean APRN [address] [place] [address] PCP - General Family Medicine 10/13/22 Jamie Cedillo MD [address] [place] [address] Geriatric Medicine 03/01/24 Kaitlin Zayas APRN [address] [place] [address] Nurse Practitioner Psychiatry, General 05/24/24 Nayeli Tucker LCSW [address] [place] [address] Postage Machine Operator Social Work 11/15/24 documented as of this encounter
--- OUTSIDE RECORDS SUMMARY | 2025-01-07 03:36 | XMS_ITS | Encounter Summary ---
Author Organization [facility] Address [address] [place] [address] Care Team Providers Care Licensed Marriage And Family Therapist Name Role Phone Donna Starks OBI Primary Care Provider Jamie Cedillo MD Unavailable [phone] Kaitlin Zayas APRN Unavailable Nayeli Tucker [facility] Unavailable Reason for Visit * Reason Onset Date Comments Medication Refill 08/31/2024 Encounter Details Date Type Department Care Team (Late st Contact Info) Description 08/31/2024 Refill [facility] Geriatrics [address] [place] [phone] Jamie Cedillo MD [address] [place] [id number] B12 nutritional deficiency Social History Tobacco Use [...] Description 03/07/2025 10:00 AM EDT Telemedicine [facility] 113 [facility] [address] [place] [address] Kartik Gomes MD 113 [facility] [address] [place] [address] documented as of this encounter Visit Diagnoses Diagnosis B12 nutritional deficiency Other B-complex deficiencies documented in this encounter Care Teams Licensed Marriage And Family Therapist Relationship Specialty Start Date End Date Donna Starks APRN [address] [place] [address] PCP - General Family Medicine 10/13/22 Jamie Cedillo MD 200 [place] [address] Geriatric Medicine 03/01/24 Kaitlin Zayas APRN [address] [place] [address] Nurse Practitioner Psychiatry, General 05/24/24 Nayeli Tucker LCSW [address] [place], [place] [phone] Diver Assistant Social Work 11/15/24 documented as of this encounter
--- OUTSIDE RECORDS SUMMARY | 2025-01-07 03:36 | XMS_ITS | Encounter Summary ---
Author Organization [facility] Address [address] [place] [address] Care Team Providers Care Burglar Alarm Mechanic Name Role Phone Donna Starks APRN Primary Care Provider Jamie Cedillo MD Unavailable Kaitlin Zayas APRN Unavailable Nayeli Tucker LCSW Unavailable Reason for Referral * Medication Prior Authorization - Authorized Specialty Diagnoses / Procedures Referred By Anna gutierrez Referred To Contact Diagnoses Irritable bowel syndrome with constipation Patience Alaniz APRN [address] [phone] Referral ID Status Reason Start Date Expiration Date V isits Requested Visits Authorized [id number] Authorized 12/04/2024 01/03/2026 1 1 Encounter Details Date Type Department Care Team (Late st Contact Info) Description 12/28/2024 Orders Only [facility] [address] [facility] [address] [place] [address] Patience Alaniz APRN [address] [place] [address] Irritable bowel syndrome with constipation (Primary Dx) Social History Tobacco Use Types Packs/Day Years [...] Upcoming Encounters Date Type Department Care Team ([facility] st Contact Info) Description 03/07/2025 10:00 AM EDT Telemedicine [address] [address] Kartik Gomes MD [address] [place] [address] documented as of this encounter Goals Goal [...] med management documented as of this encounter Visit Diagnoses Diagnosis Irritable bowel syndrome with constipation- Primary Irritable bowel syndrome documented in this encounter Additional Health Concerns Active Problems Noted Date Diagnosed Date Need for Continued Psychiatric Medication Manage ment 09/28/2024 documented as of this encounter Care Teams Burglar Alarm Mechanic Relationship Specialty Start Date End Date Donna Starks APRN [address] [address] PCP - General Family Medicine 10/13/22 Jamie Cedillo MD [address] [place] [address] Geriatric Medicine 03/01/24 Kaitlin Zayas APRN [address] [place] [address] Nurse Practitioner Psychiatry, General 05/24/24 Nayeli Tcuker LCSW [address] [place] [address] Grinder Machine Knife Setter Social Work 11/15/24 documented as of this encounter
--- OUTSIDE RECORDS SUMMARY | 2025-01-07 03:36 | XMS_ITS | Encounter Summary ---
Author Organization [facility] Address [address] [place] [address] Care Team Providers Care Hunter Skin Diver Name Role Phone Mara Andrade NP Primary Care Provider [phone] Donna Starks APRN Primary Care Provider Jamie Cedillo MD Unavailable Kaitlin Zayas APRN Unavailable Nayeli Tucker PRESCRIPTION CLERK LENSES Unavailable [phone] Encounter Details Date Type Department Care Team (Late st Contact Info) Description 02/24/2022 Prep for Surgery [facility] [place] [address] [place] [address] 2nd [address] [place] [phone] Ginette Williamson APRN 31 [facility] [address] [place] [address] Social History Tobacco Use Types Packs/Day Years Used Date Smoking Tobacco: Never Smokeless Tobacco: Never Sex and Gender Information Value Date Recorded Sex Assigned at Female 11/10/2024 4:52 PM EST Gender Identity Female 12/16/2022 2:55 PM EST Sexual Orientation Choose not to disclose 2022 2:55 PM EST COVID-19 Exposure Response Date Recorded In the last month, have you been in contact with someone who was confirmed or suspected to have Coronavirus / COVID-19? No / Unsure 02/17/2022 6:10 AM EDT documented as of this encounter Plan of Treatment Upcoming Encounters Date Type Department Care Team (Late st Contact Info) Description 03/07/2025 10:00 AM EDT Telemedicine [facility] 113 [facility] [address] [place] [phone] Kartik Gomes MD 113 [facility] [address] [place] [address] documented as of this encounter Visit Diagnoses Not on filedocumented in this encounter Care Teams Hunter Skin Diver Relationship Specialty Start Date End Date Mara Andrade NP [address] [place] [address] PCP - General Family Medicine 01/09/22 10/12/22 Donna Starks APRN [address] [address] PCP - General Family Medicine 10/13/22 Jamie Cedillo MD [address] [place] [address] Geriatric Medicine 03/01/24 Kaitlin Zayas APRN [address] [place], [place] [phone] Nurse Practitioner Psychiatry, General 05/24/24 Nayeli Tucker LCSW [address] [place], [place] [phone] Call Circuit Worker Social Work 11/15/24 documented as of this encounter
--- OUTSIDE RECORDS SUMMARY | 2025-01-07 03:36 | XMS_ITS ---
Author Name [facility] Unknown History of Medication Use Medication Directions Dispensed Refills Start Date End Date Stat Tenapanor HCl (IBSRELA) 50 MG tablet Take 1 tablet (50 mg total) by mouth 2 (two) times a day. Take immediately prior to breakfast or the first meal of the day and immediately prior to dinner 12/20/2024 active saccharomyces boulardii (FLORASTOR) 250 MG capsule Take 1 capsule (250 mg total) by mouth every day after lunch. active prucalopride succinate (MOTEGRITY) 2 MG tablet Take 1 tablet (2 mg total) by mouth daily. 10/30/2023 4 active Trintellix 20 MG tablet TAKE ONE TABLET BY MOUTH DAILY 10/20/2023 active cyanocobalamin (VITAMIN B-12) 500 MCG tablet Take 1 tablet (500 mcg total) by mouth daily. 03/18/2024 active Creon [id number] units [address] Particles 04/20/2023 3 active cloNIDine (CATAPRES) 0.2 MG tablet TAKE 1 TABLET BY MOUTH DAILY ON AN EMPTY STOMACH 12/04/2022 4 active baclofen (LIORESAL) 10 MG tablet Take 1 tablet (10 mg total) by mouth 3 (three) times a day as needed for muscle spasms. 05/10/2022 active linaclotide (LINZESS) 145 MCG Cap capsule Take 1 capsule (145 mcg total) by mouth every morning before breakfast. 08/06/2023 3 aborted QUEtiapine (SEROquel) 25 MG tablet Take 1 tablet (25 mg total) by mouth nightly. 05/24/2024 active polyethylene glycol-electrolytes (NuLYTELY, TRILYTE) 420 g solution Take as directed for Colonoscopy/GI Procedure. See administration instructions. 01/26/2024 4 active linaclotide (LINZESS) 290 MCG Cap capsule Take 1 capsule (290 mcg total) by mouth every morning before breakfast. 09/23/2023 12/01/202 3 aborted fluticasone-salmeter ol (ADVAIR HFA) 115-21 MCG/ACT inhaler Inhale 2 puffs 2 (two) times a day. 02/13/2024 active SURE COMFORT INS SYR 1CC/30G 30G X 5/16 1 ML Misc USE DIRECTED FOR INJECTIONS Strength: 30G X 5/16 1 ML 03/13/2022 4 active vortioxetine (TRINTELLIX) 10 MG tablet Take by mouth nightly. active Problems Problem Status Onset Date Problem Type Date of Resolution Source Short-term memory loss active 2023-04-29 ProblemAct [facility] Primary generalized (osteo)arthritis active 2022-05-09 ProblemAct [facility] Irritable bowel syndrome with constipation active EncounterDiagnosisAct [facility] Dysphagia, unspecified type active EncounterDiagnosisAct [facility] Arthritis of right hip active 2022-02-17 ProblemAct [facility] S/P bilateral hip replacements active 2022-10-13 ProblemAct [facility] Attention-deficit hyperactivity disorder, unspecified type active 2021-11-30 ProblemAct [facility] Colon cancer screening active EncounterDiagnosisAct [facility] Raynaud's syndrome without gangrene active 2022-05-10 ProblemAct [facility] Depression, unspecified active 2021-11-30 ProblemAct [facility] Anxiety disorder, unspecified active 2022-05-09 ProblemAct [facility] Unspecified asthma, uncomplicated active 2022-05-09 ProblemAct [facility] Lyme disease, unspecified active 2019-11-30 ProblemAct [facility] Migraine headache active 2022-10-13 ProblemAct [facility] Stress incontinence (female) (male) active 2022-05-09 ProblemAct [facility] Essential hypertension active 2023-04-16 ProblemAct [facility] Recurrent major depressive disorder, in remission active 2021-11-30 ProblemAct [facility] Chronic primary angle-closure glaucoma of both eyes, mild stage active 2022-05-10 ProblemAct [facility] Arthritis of left hip active 2022-05-09 ProblemAct [facility] Unspecified glaucoma active 2022-05-10 ProblemAct [facility] Lower abdominal pain active EncounterDiagnosisA ct [facility] Constipation active 2023-04-29 ProblemAct [facility] Bloating active EncounterDiagnosisAct [facility] Immunizations Vaccine Date Source Lot Number Status Influenza (AFLURIA/FLUZONE) Inactivated/Split Quadrivalent with Preservative IM 09/01/2020 [facility] [id number] completed Covid-19 MRNA Primary Series Vaccine - Pfizer 12+ Demarcus-Sucrose 02/10/2022 [facility] [id number] completed Pneumococcal Conjugate 20-Valent 02/10/2022 [facility] [id number] completed Influenza (AFLURIA/FLUZONE) Inactivated/Split Quadrivalent with Preservative IM 09/13/2021 [facility] [id number] completed Covid-19 MRNA Vaccine - Pfiz er 12+ (Purple Cap) 01/26/2021 [facility] [id number] completed Covid-19 MRNA Vaccine - Pfiz er 12+ (Purple Cap) 02/11/2021 [facility] UNK completed Covid-19 MRNA Vaccine - Pfiz er 12+ (Purple Cap) 01/05/2021 [facility] [id number] completed Covid-19 MRNA Vaccine - Pfiz er 12+ (Purple Cap) 03/04/2021 [facility] UNK completed Influenza Inactivated/Split Preservative Free IM 08/08/2022 [facility] [id number] completed Covid-19 MRNA Vaccine - Pfiz er 12+ (Purple Cap) 09/13/2021 [facility] [id number] completed
--- OUTSIDE RECORDS SUMMARY | 2025-01-07 03:36 | XMS_ITS | Encounter Summary ---
Author Organization Formerly [facility] Address [address] [place] [address] Care Team Providers Care Biofuels Operations Manager Name Role Phone Donna Starks APRN Primary Care Provider Jamie Cedillo MD Unavailable [phone] Kaitlin Zayas APRN Unavailable Nayeli Tucker ENCEPHALOGRAPHER Unavailable Reason for Visit * Reason Onset Date Comments Medication Refill 12/22/2024 Encounter Details Date Type Department Care Team (Late st Contact Info) Description 12/22/[address] [phone] Donna Starks APRN [address] [place] [id number] Anxiety disorder, unspecified type Social History Tobacco Use Types Packs/Day Years [...] Description 03/07/2025 10:00 AM EDT Telemedicine [facility] 113 [facility] 303 [place] [phone] Kartik Gomes MD [address] [address] documented as of this encounter Goals Goal [...] Continued Psychiatric Medication Management Pari Swanson Note: ?? Frequency: Every 12 weeks or [...] as of this encounter Visit Diagnoses Diagnosis Anxiety disorder, unspecified type documented in this encounter Additional Health Concerns Active Problems Noted Date Diagnosed Date Need for Continued Psychiatric Medication Manage ment 09/28/2024 documented as of this encounter Care Teams Biofuels Operations Manager Relationship Specialty Start Date End Date Donna Starks APRN [address] [address] PCP - General Family Medicine 10/13/22 Jamie Cedillo MD 200 [place] [address] Geriatric Medicine 03/01/24 Kaitlin Zayas APRN [address] [place] [address] Nurse Practitioner Psychiatry, General 05/24/24 Nayeli Tucker LCSW [address] [place] [address] Construction Executive Social Work 11/15/24 documented as of this encounter
--- OUTSIDE RECORDS SUMMARY | 2025-01-07 03:36 | XMS_ITS | Clinical Summary ---
Author Organization [facility] Address [address] [place] [address] Care Team Providers Care Glass Designer Name Role Phone RaudelDonna Barrie CROCKER Primary Care Provider [phone] Allergies No known active allergies Medications Medication Sig Dispensed Refills Start Date End Date Status buPROPion (WELLBUTRIN XL) 300 MG 24 hr tablet Take 1 tablet (300 mg total) by mouth daily. 0 Active vortioxetine (Trintellix) 20 MG TABS tablet Take 1 tablet (20 mg total) by mouth daily. 0 Active amphetamine-dextroamph etamine (ADDERALL, 20MG,) 20 MG tablet Take 1 tablet (20 mg total) by mouth 2 (two) times a day. 0 Active cloNIDine (CATAPRES) 0.2 MG tablet Take 1 tablet (0.2 mg total) by mouth daily. 0 Active amLODIPine (NORVASC) tablet 5 mg Take 1 tablet (5 mg total) by mouth daily. 0 Active albuterol 108 (90 Base) MCG/ACT inhaler Inhale 2 puffs into the lungs every 6 (six) hours as needed for wheezing. 0 Active fluticasone (FLONASE) 50 MCG/ACT nasal spray spray/apply 1 spray in each nostril daily. 0 Active Prucalopride Succinate (Motegrity) 2 MG TABS Take by mouth daily. 0 Active aspirin EC 81 MG tablet Take 1 tablet (81 mg total) by mouth daily. 0 Active Active Problems No known active problems Family History Medical History Relation Name Comments Cancer Mother Cancer Paternal Grandmother Relation Name Status Comments Mother Paternal Grandmother Social History Tobacco Use Types Packs/Day Years Used Date Smoking Tobacco: Never Smokeless Tobacco: Never Alcohol Use Standard Drinks/Week Comments Yes 0 (1 standard drink = 0.6 oz pur e alcohol) occasional Sex and Gender Information Value Date Recorded Sex Assigned at Female 01/19/2024 2:29 PM EST Gender Identity Not on file Sexual Orientation Not on file Job Start Date Occupation Industry Not on file Not on file Not on file Last Filed Vital Signs Vital Sign Reading Time Taken Comments Blood Pressure 125/67 01/22/2024 10:48 AM EST Pulse 68 01/22/2024 10:48 AM EST Temperature 35.9 ??C (96.7 ??F) 01/22/2024 10:[address] Respiratory Rate 16 01/22/2024 10:48 AM EST Oxygen Saturation 97% 01/22/2024 10:48 AM EST Inhaled Oxygen Concentration - - Weight 62.1 kg (137 lb) 05/09/2024 1:10 PM EDT Height 167.6 cm (5' 6 ) 05/09/2024 1:10 PM EDT Body Mass Index 22.11 05/09/2024 1:10 PM EDT Plan of Treatment Health Maintenance Due Date Last Done Comments Hepatitis C Screening 1955 Depression Screening 1966 Preventative Health Evaluation 1972 DTap / Tdap / Td (1 - Tdap) 1973 Breast Cancer Screening (Mammogram) 2004 Shingrix-Zoster Vaccine (1 of 2) 2004 Fall Risk Assessment 2019 Osteoporosis Screening (DEXA Scan) 2019 COVID-19 Vaccine ( season) 2024 02/10/2022, 09/13/2021, 03/04/2021, Additional history exists Influenza Vaccine (#1) 2024 2, 09/13/2021, 09/01/2020 RSV Adult > 60+ Yrs or (1 - 1-dose 75+ series) 2029 Colon Cancer Screening (Colonoscopy) 01/22/2034 01/22/2024 Pneumococcal Vaccine Completed 02/10/2022 Hepatitis B Vaccines Aged Out No long er eligible based on patient's age to complete this topic RSV Ped < 20 months Aged Out No longe r eligible based on patient's age to complete this topic Advance Directives For more information, please contact: [phone] Latest Code Status on File Code Status Date Activated Date Inactivated Comments Full Code 01/22/2024 10:20 AM 01/22/2024 5:15 PM This code status was ascertained in the following way: discussion with patient. Care Teams Glass Designer Relationship Specialty Start Date End Date Donna Starks APRN [address] [place] [address] PCP - General Unknown Physician Specialty 01/20/24
--- OUTSIDE RECORDS SUMMARY | 2025-01-07 03:36 | XMS_ITS | Encounter Summary ---
Author Organization [facility] Address [address] [place] [address] Care Team Providers Care Blade Bender Furnace Tender Name Role Phone Donna Starks APRN Primary Care Provider Jamie Cedillo MD Unavailable [phone] Kaitlin Zayas APRN Unavailable Nayeli Tucker LCSW Unavailable [phone] Encounter Details Date Type Department Care Team (Late st Contact Info) Description 10/20/2024 Scanned Document [address] [place] [phone] Donna Starks APRN [address] [place] [address] 101 [place], [place] [phone] Social History Tobacco Use Types Packs/Day Years [...] Telemedicine [facility] 113 [facility] 303 [place] [phone] Kartik Gomes MD 113 [facility] 301 [place] [address] documented as of this encounter Goals Goal [...] documented as of this encounter Care Teams Blade Bender Furnace Tender Relationship Specialty Start Date End Date Donna Starks APRN [address] [facility] 101 [place] [address] PCP - General Family Medicine 10/13/22 Jamie Cedillo MD 200 [place] [address] Geriatric Medicine 03/01/24 Kaitlin Zayas APRN [address] [place] [address] Nurse Practitioner Psychiatry, General 05/24/24 Nayeli Tucker LCSW [address] [place] [address] Sap Technical Architect Social Work 11/15/24 documented as of this encounter
--- OUTSIDE RECORDS SUMMARY | 2025-01-07 03:36 | XMS_ITS ---
Care Plan Created on: January 07, 2025 Jane Sutton : 1955 Sex: Female Author Organization [facility] Address [address] [place] [address] Care Team Providers Care Infection Prevention Specialist Name Role Phone Donna Starks APRN Primary Care Provider Jamie Cedillo MD Unavailable [phone] Kaitlin Zayas APRN Unavailable Nayeli Tucker UNEMPLOYMENT INSURANCE HEARING OFFICER Unavailable Active Problems Problem Noted Date Diagnosed Date [...] Depression, unspecified 11/30/2021 Lyme disease, unspecified 11/30/2019 Additional Health Concerns Active Problems Noted Date Diagnosed Date Need for Continued Psychiatric Medication Manage ment 09/28/2024 Goals Goal Patient Goal Type Associated Problems [...] indicated Duration: 30-minute appointment Modality: med management Interventions Intervention Entry Date Outcome Educate patient on community resources available to assist with building a social support network, such as support groups, local senior center, taoism groups, special interest groups, etc. 09/28/2024 Discuss with patient their barriers to developing relationships or regular interaction with others for support 09/28/2024 Assess patient for their willingness to outreach to support person(s) 09/28/2024 Order, interpret, and integrate into treatment plan results of specialty medical consultations as appropriate 09/28/2024 Order and interpret results of laboratory (blood or other body fluid) tests as indicated 09/28/2024 Provider will prescribe and manage medication 09/28/2024 Provider will endeavor to ensure optimal functioning is attained and maintained through treatment 09/28/2024 Provider will provide ongoing and systematic re-assessment of treatment response, symptoms, functional status, quality of life, as well as maintenance of safety of self and others 09/28/2024 Patient will utilize coping skills to enhance functioning in the community 09/28/2024 Patient will participate in psychotherapy as needed. If required, provider will collaborating with other care team members to ensure continuity of care 09/28/2024 Patient will routine ongoing medication management a minimum of every 3 months or as determined by patient need and provider assessment 09/28/2024 Related Goals and Interventions Goal Associated Intervent ions Patient-reported Measure Educate patient on community resources available to assist with building a social support network, such as support groups, local [facility] center, taoism groups, special interest groups, etc.; Discuss with patient their barriers to developing relationships or regular interaction with others for support; Assess patient for their willingness to outreach to support person(s) Will identify and work to re duce the impact of symptoms on functioning by focusing on recovery and assisting the patient in making informed decisions regarding the treatment options Order, interpret, and integrate into treatment plan results of specialty medical consultations as appropriate; Order and interpret results of laboratory (blood or other body fluid) tests as indicated; Provider will prescribe and manage medication; Provider will endeavor to ensure optimal functioning is attained and maintained through treatment; Provider will provide ongoing and systematic re-assessment of treatment response, symptoms, functional status, quality of life, as well as maintenance of safety of self and others; Patient will utilize coping skills to enhance functioning in the community; Patient will participate in psychotherapy as needed. If required, provider will collaborating with other care team members to ensure continuity of care; Patient will routine ongoing medication management a minimum of every 3 months or as determined by patient need and provider assessment
--- OUTSIDE RECORDS SUMMARY | 2025-01-07 03:36 | XMS_ITS | Encounter Summary ---
Author Organization [facility] Address [address] [place] [address] Care Team Providers Care Razor Sharpener Name Role Phone Donna Starks APRN Primary Care Provider [phone] Jamie Cedillo MD Unavailable [phone] Kaitlin Zayas APRN Unavailable Nayeli Tucker LCSW Unavailable [phone] Encounter Details Date Type Department Care Team (Late st Contact Info) Description 10/30/2023 Scanned Document [facility] PRIMARY CARE SCAN Primary Care, Scan Social History Tobacco Use Types Packs/Day Years Used Date Smoking Tobacco: Never Smokeless Tobacco: Never AUDIT-C Answer Date Recorded Q1: How often do you have a drink containing alcohol? Monthly or less 12/17/2022 Q2: How many drinks containi ng alcohol do you have on a typical day when you are drinking? Patient does not drink Q3: How often do you have si x or more drinks on one occasion? Never 12/17/2022 PHQ-2 Answer Date Recorded PHQ-2 Total Score 4 04/16/2023 Sex and Gender Information Value Date Recorded Sex Assigned at Female 11/10/2024 4:52 PM EST Gender Identity Female 12/16/2022 2:55 PM EST Sexual Orientation Choose not to disclose 2022 2:55 PM EST documented as of this encounter Plan of Treatment Upcoming Encounters Date Type Department Care Team (Late st Contact Info) Description 03/07/2025 10:00 AM EDT Telemedicine [facility] 113 [facility] [address] [place] [phone] Kartik Gomes MD 113 [facility] [address] [place] [address] documented as of this encounter Visit Diagnoses Not on filedocumented in this encounter Care Teams Razor Sharpener Relationship Specialty Start Date End Date Donna Starks APRN [address] [place] [phone] PCP - General Family Medicine 10/13/22 Jamie Cedillo MD 200 [place] [address] Geriatric Medicine 03/01/24 Kaitlin Zayas APRN [address] [place] [address] Nurse Practitioner Psychiatry, General 05/24/24 Nayeli Tucker LCSW [address] [place] [address] Electrochemist Social Work 11/15/24 documented as of this encounter
--- OUTSIDE RECORDS SUMMARY | 2025-01-07 03:36 | XMS_ITS | Encounter Summary ---
Author Organization [facility] Address [address] [place] [address] Care Team Providers Care Bobbin Dumper Name Role Phone Donna Starks APRN Primary Care Provider Jamie Cedillo MD Unavailable [phone] Kaitlin Zayas APRN Unavailable Nayeli Tucker LCSW Unavailable [phone] Encounter Details Date Type Department Care Team (Late st Contact Info) Description 09/14/[address] [facility] 10 [facility] [address] [place] [address] Kartik Gomes MD [address] [facility] [address] [place] [address] Social History Tobacco Use Types Packs/Day Years [...] Description 03/07/2025 10:00 AM EDT Telemedicine [facility] 113 [facility] [address] [place] [phone] Kartik Gomes MD 113 [facility] [address] [place] [address] documented as of this encounter Procedures Procedure Name Priority Date/Time Associated Diagnosis Comments PATHOLOGY REPORT 09/14/2024 12:0 0 AM EDT documented in this encounter Results * Pathology (09/14/2024 12:00 AM EDT) Kartik Gomes MD PATHOLOGY/CYTOLOGY O RDERABLES documented in this encounter Visit Diagnoses Not on filedocumented in this encounter Care Teams Bobbin Dumper Relationship Specialty Start Date End Date Donna Starks APRN [address] [facility] 101 [place] [address] PCP - General Family Medicine 10/13/22 Jamie Cedillo MD 200 [place] [address] Geriatric Medicine 03/01/24 Kaitlin Zayas APRN [address] [place], [place] [id number] Nurse Practitioner Psychiatry, General 05/24/24 Nayeli Tucker LCSW [address] [place], [place] [id number] Crepe Box Tender Social Work 11/15/24 documented as of this encounter
--- OUTSIDE RECORDS SUMMARY | 2025-01-07 03:36 | XMS_ITS | Encounter Summary ---
Author Organization [facility] Address [address] [place] [address] Care Team Providers Care Animal Pathologist Name Role Phone Donna Starks APRN Primary Care Provider [phone] Jamie Cedillo MD Unavailable [phone] Kaitlin Zayas APRN Unavailable Nayeli Tucker LCSW Unavailable [phone] Encounter Details Date Type Department Care Team (Late st Contact Info) Description 04/29/2023 Scanned Document [facility] PRIMARY CARE SCAN Primary Care, Scan [...] Exposure Response Date Recorded In the last 10 days, have yo u been in contact with someone who was confirmed or suspected to have Coronavirus/COVID-19? No / Unsure 04/29/2023 8:26 AM EDT documented as of this encounter Plan of Treatment Upcoming Encounters Date Type Department Care Team (Late st Contact Info) Description 03/07/2025 10:00 AM EDT Telemedicine [facility] 113 [facility] [address] [place] [address] Kartik Gomes MD 113 [facility] [address] [place] [address] documented as of this encounter Visit Diagnoses Not on filedocumented in this encounter Care Teams Animal Pathologist Relationship Specialty Start Date End Date Donna Starks APRN [address] [place] [address] PCP - General Family Medicine 10/13/22 Jamie Cedillo MD 200 [place] [address] Geriatric Medicine 03/01/24 Kaitlin Zayas APRN [address] [place] [address] Nurse Practitioner Psychiatry, General 05/24/24 Nayeli Tucker LCSW [address] [place] [address] Marking Room Supervisor Social Work 11/15/24 documented as of this encounter
--- OUTSIDE RECORDS SUMMARY | 2025-01-07 03:36 | XMS_ITS | Encounter Summary ---
Author Organization [facility] Address [address] [place], [place] [address] Care Team Providers Care Edi Consultant Name Role Phone Raudel Donna Barrie CROCKER Primary Care Provider [phone] Jamie Cedillo MD Unavailable [phone] Kaitlin Zayas APRN Unavailable Nayeli TuckerW Unavailable [phone] Reason for Visit * Reason Onset Date Comments Medication Refill 02/11/2023 Encounter Details Date Type Department Care Team (Late st Contact Info) Description 02/11/[address] [phone] [place] [address] [place] [address] Attention deficit hyperactivity disorder (ADHD), predominantly inattentive type Social History Tobacco Use Types Packs/Day [...] Answer Date Recorded PHQ-2 Total Score 1 12/17/2022 Sex and Gender Information Value Date Recorded Sex Assigned at Female 11/10/2024 4:52 PM EST Gender Identity Female 12/16/2022 2:55 PM EST Sexual Orientation Choose not to disclose 2022 2:55 PM EST documented as of this encounter Plan of Treatment Upcoming Encounters Date Type Department Care Team (Late st Contact Info) Description 03/07/2025 10:00 AM EDT Telemedicine [facility] 113 [facility] [address] [place] [phone] Kartik Gomes MD 113 [facility] [address] [place] [address] documented as of this encounter Visit Diagnoses Diagnosis Attention deficit hyperactivity disorder (ADHD), predominantly inattentive type documented in this encounter Care Teams Edi Consultant Relationship Specialty Start Date End Date Donna Starks APRN [address] [place] [address] PCP - General Family Medicine 10/13/22 Jamie Cedillo MD 200 [place] [address] Geriatric Medicine 03/01/24 Kaitlin Zayas APRN [address] [place] [address] Nurse Practitioner Psychiatry, General 05/24/24 Nayeli Tucker LCSW [address] [place] [address] Remote Ruby On Rails Developer Social Work 11/15/24 documented as of this encounter
--- OUTSIDE RECORDS SUMMARY | 2025-01-07 03:36 | XMS_ITS | Encounter Summary ---
Author Organization [facility] Address [address] [place] [address] Care Team Providers Care Plaster Pattern Caster Name Role Phone Donna Starks APRN Primary Care Provider Jamie Cedillo MD Unavailable [phone] Kaitlin Zayas APRN Unavailable Nayeli Tucker LCSW Unavailable Encounter Details Date Type Department Care Team (Late st Contact Info) Description 05/24/2024 Scanned Document [facility] [address] [phone] Angel Rasmussen MD [address] [place] [address] [place] [address] Social History Tobacco Use Types Packs/Day Years [...] 03/07/2025 10:00 AM EDT Telemedicine [facility] 113 [facility] [address] [place] [phone] Kartik Gomes MD 113 [facility] [address] [place] [address] documented as of this encounter Visit Diagnoses Not on filedocumented in this encounter Care Teams Plaster Pattern Caster Relationship Specialty Start Date End Date Donna Starks APRN [address] [place] [address] PCP - General Family Medicine 10/13/22 Jamie Cedillo MD 200 [place] [address] Geriatric Medicine 03/01/24 Kaitlin Zayas APRN [address] [place] [address] Nurse Practitioner Psychiatry, General 05/24/24 Nayeli Tucker LCSW [address] [place] [address] Junior Brand Manager Social Work 11/15/24 documented as of this encounter
--- OUTSIDE RECORDS SUMMARY | 2025-01-07 03:36 | XMS_ITS | Encounter Summary ---
Author Organization [facility] Address [address] [place] [address] Care Team Providers Care Care Consultant Name Role Phone Donna Starks APRN Primary Care Provider Jamie Cedillo MD Unavailable [phone] Kaitlin Zayas APRN Unavailable Nayeli Tucker LCSW Unavailable Encounter Details Date Type Department Care Team (Late st Contact Info) Description 12/27/2024 Telephone [facility] [address] [place] [phone] Patience Alaniz APRN [address] [address] Social History Tobacco Use Types Packs/Day Years [...] PM EST documented as of this encounter Miscellaneous Notes * Telephone Encounter - Della Bernal MA - 12/30/2024 1:43 PM EST Please initiate Prior Auth for provider for Trulance 3mg. Thank you kindly, Della * Telephone Encounter - Della Bernal MA - 12/30/2024 11:09 AM EST Called pt. Pt said that she will call me back, in a meeting. * Telephone Encounter - Della Bernal MA - 12/29/2024 3:58 PM EST CALLED PT. VM FULL. WILL CALL BACK AT A LATER TIME. * Telephone Encounter - Lara Beck - 12/27/2024 4:19 PM EST Prior auth for Ibsrela 50MG tablets Pt must try the following Linzess) (Feng and iveth. , must try all 3 medication if I proceed with this Auth it will be denied would you like me to proceed with the auth and get denial or would you like me to put it on hold until the patient tries the required medication that are required. Thank you documented in this encounter Plan of Treatment Upcoming Encounters Date Type Department Care Team (Late st Contact Info) Description 03/07/2025 10:00 AM EDT Telemedicine [facility] [address] [place] [address] Kartik Gomes MD 113 [facility] 301 [place] [address] documented as of this encounter Goals Goal [...] Psychiatric Medication Management No Pari Ramon Note: Patient will report at least a [...] documented as of this encounter Care Teams Care Consultant Relationship Specialty Start Date End Date Donna Starks APRN [address] [facility] 101 [place] [address] PCP - General Family Medicine 10/13/22 Jamie Cedillo MD 200 [place] [address] Geriatric Medicine 03/01/24 Kaitlin Zayas APRN [address] [place] [address] Nurse Practitioner Psychiatry, General 05/24/24 Nayeli Tucker LCSW [address] [place] [address] Green Material Value Added Assessor Social Work 11/15/24 documented as of this encounter
--- OUTSIDE RECORDS SUMMARY | 2025-01-07 03:36 | XMS_ITS | Data Portability ---
Author Organization [place] - [facility] Address [address] [place] [id number] Care Team Providers Care Insurance Assistant Name Role Phone NOREEN MORALES Primary Care Provider Assessment Encounter Date Assessment Date Assessment LastModified by Organization Details LastModified Time 11/25/2021 11/25/2021 Overview/History : Pt with c/o diffuse myalgias, chills, dry cough, and headache intermittently for the past 2-3 days. No known sick contacts Exam: new pt to and to this provider Non-toxic afebrile 66 yof in NAD ambulating with a can on our arrival. Pt is mildly tachycardic but states this is normal for her to hover around 103 HR. Resp unlabored, Lungs clear except for faint expiratory wheezing in upper airways. EACs and TMs unremarkable bilat. Phrynx erythematous without tonsillar swelling, exudates, or palatal petehiae DDx considered, but not limited to: Viral URI COVID 19 Influenza Acute bronchitis PNA Work up/Results: HPI and PE suggests viral syndrom Rapid COVID test negative COVID PCR collected Plan/Discussion: Quarantine at least until PCR returns. If positive per CDC guidelines. OTC meds PRN symptoms. F/U PRN worsening symptoms. Proper Personal Protective Equipment (PPE), including gloves, eye protection, N95 mask, gown, were donned and doffed appropriately and all equipment cleaned using approved technique with germicidal disposable wipes prior to and after care of this patient according to [facility]'s infection prevention protocols. Time On Scene with Patient: 00:23:49 [email or web address] Not available 11/25/2021 13:35:45 Plan of Treatment Reminders Order Date Submit Date Provider Last Modified By Organization Details Last Modified Time Details Appointments None recorded. Lab rapid SARS CoV 2 Ag, QL IA, respiratory specimen 2020 021 [id number], [address], [place], [address], 13:36:41 unlisted lab - covid-19 (novel coronavirus ) PCR 2020 021 [place] [facility], [address], [place], [address], 17:31:36 Referral None recorded. Procedures None recorded. Surgeries None recorded. Imaging None recorded. Medication Orders None recorded. Patient TargetsNo targets recorded. Patient Instructions Encounter Date Encounter Id Patient Instructions Last Modified By Organization Details Last Modified Time 11/25/2021 [id number] Quarantine at least until the results of the PCR test return. Follow up for worsening symptoms. What is coronavirus disease 2019? Coronavirus disease 2019 (COVID-19) is a respiratory illness that can spread from person to person. The virus that causes COVID-19 is a novel coronavirus that was first identified during an investigation into an outbreak in [facility]. Can I get COVID-19? Yes. COVID-19 is spreading from person to person in parts of the world. Risk of infection from the virus that causes COVID-19 is higher for people who are close contacts of someone known to have COVID-19, for example household members. Other people at higher risk for infection are those who live in or have recently been in an area with ongoing spread of COVID-19. How does COVID-19 spread? The virus that causes COVID-19 probably emerged from an animal source, but is now spreading from person to person. The virus is thought to spread mainly between people who are in close contact with one another (within about 6 feet) through respiratory droplets produced when an infected person coughs or sneezes. It also may be possible that a person can get COVID-19 by touching a surface or object that has the virus on it and then touching their own mouth, nose or possibly their eyes, but this is not thought to be the main way the virus spreads. What are the symptoms of COVID-19? Patients with COVID-19 have mild to severe respiratory illness with symptoms of: fever cough shortness of breath What are severe complications from this virus? Some patients have pneumonia in both lungs, multi-organ failure and in some cases . People can help protect themselves from respiratory illness with everyday preventative actions. Avoid close contact with people who are sick. Avoid touching your eyes, nose, and mouth with unwashed hands. Wash your hands often with soap and water for at least 20 seconds. Use an alcohol-based hand section crews activities clerk that contains at least 60% alcohol if soap and water are not available If you are sick, to keep from spreading respiratory illness to others, you should Stay home when you are sick. Cover your cough or sneeze with a tissue, then throw the tissue in the trash. Clean and disinfect frequently touched objects and surfaces. Is there a treatment? There is no specific antiviral treatment for COVID-19. People with COVID-19 can seek medical care to help relieve symptoms. FOR MORE INFORMATION: [email or web address].[email or web address] Not available 11/25/2021 13:28:59 Reason for Referral None Reported. Results Created Date Observation Date Name Description Value Unit Range Abnormal Flag Note LastModifiedBy Organization Detail LastModifiedTime 11/25/20 21 11/27/2021 COVID -19 (NOVE L CORON AVIRU S) PCR covid-19 PCR specimen source NASAL Not Available [facility] [address], [place], [address], 12/04/2021 17:31:36 11/25/20 21 11/28/2021 COVID -19 (NOVE L CORON AVIRU S) PCR covid-19 PCR result (neg) NEGAT JADE 2019- novel Coron aviru s (2019 -nCoV ) not detec norma by RT-PC R. Note: If clini smiley suspi cion for COVID -19 is high, milton nue to maint ain preca ution s and consi reed repea t testi ng. Resul t repor norma to the [facility]. All test resul ts must be corre lated with clini smiley findi ngs. This test has been autho rized by the FDA under an Emerg ency Use Autho rizat ion (EUA) for use by autho rized labor atori es. Testi ng [facility] a assay utili zing trans cript ion-m ediat ed ampli ficat ion (TMA) . Not Available [facility] [address], [place], [address], 12/04/2021 17:31:36 11/25/20 21 11/25/2021 rapid SARS CoV 2 Ag, QL IA, respi rator y speci men Covid-19 (ref: neg) negati ve Not Available [facility] [address] [place], [address], 11/25/2021 13:16:19 11/25/20 21 11/25/2021 rapid SARS CoV 2 Ag, QL IA, respi rator y speci men Control Visual ized/V alid Not Available [facility] [address] [place], [address], 11/25/2021 13:16:19 11/25/20 21 11/25/2021 rapid SARS CoV 2 Ag, QL IA, respi rator y speci men Location [facility], [address] [place] [address], [id number] Not Available [facility] [address] [place], [address], 11/25/2021 13:16:19 Result Notes None recorded. Medical Equipment None Reported. Allergies No known drug allergies Medications Name Sig Start Date Stop Date Status Note LastModified by Organization Details LastModified Time [id number] (tetrasubsti tuted grf 1-29) 500 mcg mini troches DISSOLVE 1 MINI RHIANNON UNDER THE TONGUE AT BEDTIME 5 OUT OF 7 DAYS PER WEEK active Not Available Not Available No t Available estrogens, conjugated, synthetic A 0.3 mg tablet Take 1 tablet every day by oral route. active Not Available Not Available No t Available amlodipine active Not Available Not Av ailable Not Available Wellbutrin SR active Not Available Not Available Not Available Pletal active Not Available Not Availa ble Not Available Vitals Date Recorded Heart rate Respiratory rate Body temperature Oxygen saturation Oxygen saturation in Arterial blood by Pulse oximetry Systolic blood pressure Diastolic blood pressure Provider Name and Address Organization Details Last Updated DateTime 102 /min 18 /min 96.6 [degF] 99 % 99 % 118 mm[Hg] 80 mm[Hg] Not Available [facility] 13:12:00 Social History Question Answer Notes LastModified by Organizat ion Details LastModified Time Tobacco Smoking Status Never Smoker Francisco Javier Collins NP [address] [place], [address], [place] [facility] 11/25/2021 13:09:45 Do You Have An Advance Directive? No [email or web address] Information not available 11/25/2021 What Is Your Level Of Alcohol Consumption? None [email or web address] Information not available 11/25/2021 What Is Your Code Status? Full Code [email or web address] Information not available 11/25/2021 Excessive Alcohol Or Drug Use No [email or web address] Information not available 11/25/2021 Does This Patient Have A PCP? Yes [email or web address] Information not available 11/25/2021 Do You Use Any Illicit Or Recreational Drugs? No [email or web address] Information not available 11/25/2021 Do You Or Have You Ever Used Any Other Forms Of Tobacco Or Nicotine? No [email or web address] Information not available 11/25/2021 Sex: Unknown Functional Status None recorded. Mental Status None recorded. Family History Relationship Description Onset Age of this Age Resolved Age Notes LastModified by Organization Details LastModified Time Father Coronary arterioscler osis [email or web address] Not available 2020 13:10:27 Mother Malignant tumor of pancreas [email or web address] Not available 2020 13:10:55 Medical History Condition Response Coronary Artery Disease N Parkinson's Disease N COPD N Depression Y Hypothyroidism N A-fib N Diabetes N CHF N Cancer N Dementia N Stroke N Asthma N High Cholesterol N Rheumatoid Arthritis N Pulmonary Embolism N Hypertension N Osteoporosis N Kidney Disease N Gynecological HistoryNo gynecological history recorded. Obstetrics History GPAL:G 0 P 0 0 0 0 Past Encounters Encounter ID Performer Location Encounter Start Date Encounter Closed Date Diagnosis/Indication Diagnosis SNOMED-CT Code Diagnosis ICD10 Code Diagnosis Note [id number] Francisco Javier Collins NP [facility] [address] [place] [address] 11/25/2021 13:04:50 11/30/2021 01:25:35 Viral syndrome 771093259 B34.9 Health Concerns Section Related Observation LastModified by Organization Detai ls LastModified Time None Recorded Concern Status LastModified by Organization Details LastModified Time None Recorded Advance Directives Directive N: Payers Encounter Date Sequence Insurance Name Policy Number Policy Snell Covered Member ID Snell Member ID Guarantor Name 11/25/2021 1 [place]IC[place] [employer] Jane Drain Cleaner Plumber [id number] Jane Drain Cleaner Plumber 11/25/2021 2 [employer] OPTIONS (MEDICARE SUPPLEMENT) Jane Drain Cleaner Plumber [id number] Jane Drain Cleaner Plumber Notes Date Note Type Note Provider Name and Address Organization Details Recorded Time 11/25/2021 text/html Pt states sh began having bodyaches, sore throat and chills that began 2-3 days ago. She is unsure of any recent sick or COVID + contacts. Pt states she has not had a fever that she knows of. Needs COVID test to go to orthopedic office tomorrow. STates tylenol has helped some with her myalgias Pt has had COVID vaccine initial dose and recent booster. Francisco Javier Collins NP [address], [place], [address], [place] [facility] 11/25/2021 13:36:57 OBGyn Episode No OBEpisode recorded.
--- OUTSIDE RECORDS SUMMARY | 2025-01-07 03:36 | XMS_ITS | Encounter Summary ---
Author Organization [facility]ly [facility] Address [address] [place] [address] Care Team Providers Care Automotive Starter Repairer Name Role Phone Donna Starks APRN Primary Care Provider Jamie Cedillo MD Unavailable [phone] Kaitlin Zayas APRN Unavailable Nayeli Tucker LCSW Unavailable Reason for Visit * Reason Comments Follow-up Encounter Details Date Type Department Care Team (Late st Contact Info) Description 12/20/2024 10:30 AM EST Office Visit [facility] [address] [place] [phone] Patience Alaniz APRN [address] [place] [id number] Irritable bowel syndrome with constipation (Primary Dx); Colon cancer screening; Bloating; Dysphagia, unspecified type; Lower abdominal pain Social History Tobacco Use Types Packs/Day Years [...] PM EST documented as of this encounter Last Filed Vital Signs Vital Sign Reading Time Taken Comments Blood Pressure 111/62 12/20/2024 10:47 AM EST Pulse - - Temperature - - Respiratory Rate - - Oxygen Saturation - - Inhaled Oxygen Concentration - - Weight 63.5 kg (140 lb) 12/20/2024 10:47 AM EST Height 167.6 cm (5' 6 ) 12/20/2024 10:47 AM EST Body Mass Index 22.6 12/20/2024 10:47 AM EST documented in this encounter Progress Notes * Patience Alaniz, OBI - 12/20/2024 10:30 AM EST Images from the original note were not included. [address] [facility] [phone] [facility] PROGRESS NOTE Assessment & Plan 1. Irritable bowel syndrome with constipation 2. Lower abdominal pain Patient with minimal improvement on linzess 145 mcg and 290 mcg daily. She has tried miralax, senna, amitiza, fiber supplements in the past Previously with good results with motegrity 2 mg daily however now not having a BM for 7-8 days with the use of Motegrity and miralax and senna. Constipation is associated with lower abdominal pain. She started on Trazodone ( July 2024) and Seroquel (April 2024). TSH 11/2022 normal. Colonoscopy completed 2023 Plan: Abdominal x ray to assess fecal burden. If full of stool and no obstruction then will need 4L nulytely to start getting cleaned out Start ibsrela - stop motegrity Will hold off on celiac testing at this time since patient does not eat gluten. Consider further images for abdomina pain if no improvement with BM Discussed patients diet and suggested changes, such as, increasing fiber with more fruits, veggies,or supplements. Pt should also increase fluid intake to at least 60 oz of water or water based drinks daily. We discussed different pharmaceutical options and their risks, benefits, and how to correctly take them and stay consistent. 2. Colon cancer screening A colonoscopy August 2024 showing 2 to 3 mm polyps in the distal ascending colon, 8 mm polyp in the rectum, melanosis, redundant colon. Recommendation was to repeat colonoscopy in 5 years. Due 2028 3. Bloating Colonoscopy - August 2024 EGD 12/2023 Abdominal ultrasound in January was normal. 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 Plan: She will discuss at follow up appointment next week with her lyme doctor if they are going to treator not. She will let us know if she will if she would like us to treat with xifaxan following that appointment. 4. Dysphagia, unspecified type Patient with dysphagia that she has had in the past but is worsening. She notices it mostly with liquids EGD 12/2023 - no cause for dysphagia Patient did not complete MBS Plan: Patient to complete MBS Orders Placed This Encounter XR Abdomen 1 view (21356) Tenapanor HCl (IBSRELA) 50 MG tablet Patient is aware to follow up: 3 months. Patient will call sooner if symptoms develop or worsen. Patient verbalized understanding and is in agreement with plan. No LOS data to display During the day of the visit, time was spent including the following: Examining the patient Chart review in preparation for the visit Documenting in the patient record Reviewing Labs & Radiology Medication Reconciliation Donny Sutton is a 69 y.o. female who presents for follow up. Patient was last seen for telehealth in December 2023 for constipation, bloating, colon cancer screening, dysphagia. At that time patient was to get a colonoscopy and endoscopy, modified barium swallow with speech, abdominal ultrasound. She was going to complete SIBO testing with her endoscopic technician. She was given continue Motegrity for her bowel movements. A colonoscopy August 2024 showing 2 to 3 mm polyps in the distal ascending colon, 8 mm polyp in the rectum, melanosis, redundant colon. Recommendation was to repeat colonoscopy in 5 years. EGD completed in December 2023 following: No endoscopic esophageal abnormality to explain patient'sdysphagia, gastritis, normal examined duodenum Abdominal ultrasound in January or 2023 was normal. Today: Patient states she is not having a BM for 7 to 8 days. She last had a BM 3-4 days ago - able to tolerate oral intake. She feels like she is getting bloated quickly. She is taking motegrity daily Was taking miralax with it but switched to senna. She feels neither of these are working for her. This all started after colonoscopy in September. She started on Trazodone ( July 2024) and Seroquel (April 2024). She is on her second week of FODMAP diet She states she has lower abdominal pain that is constant. She describes it as cramping in nature. She has this almost daily. Non tender on exam. She feels better after a BM she thinks.She has had this pain for years. She did not have the pain when having a normal BM. [] Family Hx: No fm hx colon cancer NSAID/Blood Thinner: No Prior Abdominal Surgeries: None Social Hx: Drinks socially, non smoker, no other drug use Prior GI Workup: Colon: 11 years ago, No issues. - per patient Cologuard with PCP 2020. Negative - per patient /PCP note 09/2022 EGD: 11 years ago. No issue - per patient Review of Systems Constitutional: Negative. HENT: Negative. Eyes: Negative. Respiratory: Negative. Cardiovascular: Negative. Gastrointestinal: Positive for abdominal pain, bloating, change in bowel habit and difficulty eating/swallowing. Genitourinary: Negative. Musculoskeletal: Negative. Skin: Negative. Breast: Negative. Neurological: Negative. Endo/Heme/Allergies: Negative. Psychiatric/Behavioral: Negative. Objective Vitals: 12/20/24 1047 BP: 111/62 Weight: 63.5 kg (140 lb) Height: 1.676 m (5' 6 ) Body mass index is 22.6 kg/m??. Wt Readings from Last 3 Encounters: 12/20/24 63.5 kg (140 lb) 10/12/24 63.5 kg (140 lb) 09/14/24 63.5 kg (140 lb) Physical Exam Vitals and nursing note reviewed. Constitutional: Appearance: Normal appearance. She is well-developed. HENT: Head: Normocephalic. Eyes: General: No scleral icterus. Conjunctiva/sclera: Conjunctivae normal. Cardiovascular: Rate and Rhythm: Normal rate and regular rhythm. Heart sounds: Normal heart sounds. Pulmonary: Effort: Pulmonary effort is normal. Breath sounds: Normal breath sounds. Abdominal: General: Bowel sounds are normal. There is no distension. Palpations: Abdomen is soft. Tenderness: There is no abdominal tenderness. Musculoskeletal: Cervical back: Neck supple. Skin: General: Skin is warm and dry. Neurological: Mental Status: She is alert and oriented to person, place, and time. Psychiatric: Behavior: Behavior normal. No Known Allergies Medication List albuterol (PROAIR RESPICLICK) 108 (90 Base) MCG/ACT inhaler Inhale 1 puff 4 times daily (every 6 hours) as needed for wheezing. Rarely uses amLODIPine (NORVASC) 5 MG tablet Take 1 tablet (5 mg total) by mouth nightly. amphetamine-dextroamphetamine (ADDERALL) 20 MG tablet Take 1 tablet (20 mg total) by mouth 2 (two) times a day. Max Daily Amount: 40 mg aspirin enteric coated (ECOTRIN LOW STRENGTH) 81 MG EC tablet Take 1 tablet (81 mg total) by mouth every evening with dinner. Do not start before May 11, 2022. buPROPion (WELLBUTRIN XL) 150 MG 24 hr tablet Take 1 tablet (150 mg total) by mouth every morning. Swallow whole; do not crush, chew, or divide. CALCIUM MAGNESIUM 750 PO Take 1 tablet by mouth every morning. cloNIDine (CATAPRES) 0.2 MG tablet TAKE 1 TABLET BY MOUTH DAILY ON AN EMPTY STOMACH cyanocobalamin (VITAMIN B-12) 500 MCG tablet Take 1 tablet (500 mcg total) by mouth daily. fluticasone (FloNASE) 50 mcg/spray nasal spray 1 spray into each nostril 2 (two) times a day. fluticasone-salmeterol (Advair HFA) 230-21 MCG/ACT inhaler Inhale 1 puff 2 (two) times a day. multivitamin Tab tablet Take 1 tablet by mouth every morning. potassium phosphate and sodium phosphate (PHOS-NAK) 280-160-250 MG Pack packet Take by mouth. prucalopride succinate (Motegrity) 2 MG tablet Take 1 tablet (2 mg total) by mouth daily. QUEtiapine (SEROquel) 25 MG tablet Take 1 tablet (25 mg total) by mouth nightly. saccharomyces boulardii (FLORASTOR) 250 MG capsule Take 1 capsule (250 mg total) by mouth every dayafter lunch. ixdhdf-fxsooyedu-yeriodlxt sulfates (Suprep Bowel Prep Kit) 17.5-3.13-1.6 GM/177ML Solution solution Follow directions provided by physician's office. SURE COMFORT INS SYR 1CC/30G 30G X 04/14 1 ML Misc USE DIRECTED FOR INJECTIONS Strength: 30G X 04/14 1 ML travoprost, ELMER Free, (TRAVATAN Z) 0.004 % ophthalmic solution Administer 1 drop to both eyes nightly. traZODone (DESYREL) 50 MG tablet Take 1 tablet (50 mg total) by mouth nightly. Take 1/2 tab (25mg) at bedtime. Take an additional 1/2 tab (25mg) if needed. Trintellix 20 MG tablet TAKE ONE TABLET BY MOUTH DAILY vitamin B complex (b complex vitamins) capsule Take 1 capsule by mouth every morning. Pt takes liquid Recent Labs and Tests Lab Results Component Value Date WBC 7.3 12/15/2022 HGB 13.4 12/15/2022 HCT 39.0 12/15/2022 MCV 92.6 12/15/2022 PLT 251 12/15/2022 Lab Results Component Value Date GLUC 94 12/15/2022 CALCIUM 10.0 12/15/2022 NA 140 12/15/2022 K 4.5 12/15/2022 CO2 30 12/15/2022 CL 106 12/15/2022 BUN 19 12/15/2022 CREAT 0.95 12/15/2022 Lab Results Component Value Date ALT 15 12/15/2022 AST 18 12/15/2022 ALKPHOS 85 12/15/2022 BILITOT 0.4 12/15/2022 ALBUMIN 4.1 12/15/2022 No results found for: INR , PROTIME No results found for: LIPASE No results found for: AMYLASE Imaging No results found. Histories Past Medical History: Diagnosis Date Anxiety Arthritis OA Asthma rare use of rescue inhaler Depression Essential hypertension 04/16/2023 Glaucoma Lyme disease 2019 Chronic Murmur last echo 2019 Raynaud disease Seasonal and perennial allergic rhinitis Past Surgical History: Procedure Laterality Date ARTHROPLASTY TOTAL HIP Right 02/17/2022 Procedure: GOLDIE ARTHROPLASTY TOTAL HIP; Surgeon: Juan Cast MD; [facility]: [facility]; Service: Joint; Laterality: Right; ARTHROPLASTY TOTAL HIP Left 05/09/2022 Procedure: GOLDIE ARTHROPLASTY TOTAL HIP; Surgeon: Juan Cast MD; Location: [facility] OR; Service: Joint; Laterality: Left; COLONOSCOPY COLONOSCOPY N/A 09/14/2024 Preliminary Information: Procedure: COLONOSCOPY; Surgeon: Kartik Gomes MD; Location: [facility]; Service: Gastroenterology; Laterality: N/A; CYST REMOVAL 2007 from scalp ENDOSCOPY ENT PROCEDURE 2017 FINGER SURGERY 04/2024 TONSILLECTOMY Social History Tobacco Use Smoking status: Never Smokeless tobacco: Never Vaping Use Vaping status: Never Used Substance Use Topics Alcohol use: Not Currently Comment: rarely Drug use: Never Family History Problem Relation Age of Onset Pancreatic cancer Mother Thyroid disease Mother Kidney disease Mother Alzheimer's disease Mother Deep vein thrombosis Mother Heart attack Father Stroke Father Cancer Brother testicular All relevant data including labs, xrays, diagnositic studies, physician notes, and referral notes were reviewed Electronically signed by Patience Alaniz APRN Disclaimer: Portions of this note were dictated by speech recognition. Minor errors in resident care aide may be present. documented in this encounter Plan of Treatment Upcoming Encounters Date Type Department Care Team (Late st Contact Info) Description 03/07/2025 10:00 AM EDT Telemedicine [address] [phone] Kartik Gomes MD [address] [place] [address] Scheduled Orders Name Type Priority Associated Diagnoses Orde r Schedule XR Abdomen 1 view ([id number]) Imaging STAT Irritable bowel syndrome with constipation Expected: 12/20/2024, Expires: 12/20/2025 documented as of this encounter Goals Goal [...] syndrome with constipation- Primary Irritable bowel syndrome Colon cancer screening Special screening for malignant neoplasms, colon Bloating Flatulence, eructation, and gas pain Dysphagia, unspecified type Lower abdominal pain Abdominal pain, other specified site documented in this encounter Additional Health Concerns Active Problems Noted Date Diagnosed Date Need for Continued Psychiatric Medication Manage ment 09/28/2024 documented as of this encounter Care Teams Automotive Starter Repairer Relationship Specialty Start Date End Date Donna Starks APRN [address] [place] [address] PCP - General Family Medicine 10/13/22 Jamie Cedillo MD [address] [place] [address] Geriatric Medicine 03/01/24 Kaitlin Zayas APRN [address] [place], [place] [phone] Nurse Practitioner Psychiatry, General 05/24/24 Nayeli Tucker LCSW [address] [place], [place] [phone] Health Care Recruiter Social Work 11/15/24 documented as of this encounter
--- OUTSIDE RECORDS SUMMARY | 2025-01-07 03:36 | XMS_ITS | Encounter Summary ---
Author Organization [facility] Address [address] [place] [address] Care Team Providers Care Lap Winding Machine Operator Name Role Phone Donna Starks APRN Primary Care Provider [phone] Jamie Cedillo MD Unavailable [phone] Kaitlin Zayas APRN Unavailable Nayeli Tucker RECONCILER Unavailable Reason for Visit * Reason Comments Medication Refill Encounter Details Date Type Department Care Team (Late st Contact Info) Description 07/29/[address] [phone] Donna Starks APRN [address] [place] [phone] Social History Tobacco Use Types Packs/Day Years [...] encounter Miscellaneous Notes * Telephone Encounter - Padma Bates - 07/29/2023 3:34 PM EDT My chart and vm left for patient to call the office in regards to med refill, * Telephone Encounter - Marichuy Ventura LPN - 07/29/2023 3:11 PM EDT Pt needs to schedule follow up appt documented in this encounter Plan of Treatment Upcoming Encounters Date Type Department Care Team ([facility] st Contact Info) Description 03/07/2025 10:00 AM EDT Telemedicine [facility] [address] [phone] Kartik Gomes MD [address] [place] [address] [address] [place] [address] documented as of this encounter Visit Diagnoses Not on filedocumented in this encounter Care Teams Lap Winding Machine Operator Relationship Specialty Start Date End Date Donna Starks APRN [address] [facility] [address] [place] [address] PCP - General Family Medicine 10/13/22 Jamie Cedillo MD [address] [place] [address] Geriatric Medicine 03/01/24 Kaitlin Zayas APRN [address] [place] [address] Nurse Practitioner Psychiatry, General 05/24/24 Nayeli Tucker, ANNE-MARIE [address] [place] [address] Childrens Club Attendant Social Work 11/15/24 documented as of this encounter
--- OUTSIDE RECORDS SUMMARY | 2025-01-07 03:36 | XMS_ITS | Clinical Summary ---
Author Organization [facility] Address [address] [place] [address] Care Team Providers Care Time Lock Expert Name Role Phone Donna Starks DARA Primary Care Provider [phone] Immunizations Name Administration Dates Next Due Pfizer (ages 12 & older) SIXTO S-CoV-2 COVID-19, mRNA, LNP-S, traci-sucrose, preservative free 02/10/2022 Pfizer SARS-CoV-2 COVID-19, mRNA, LNP-S, preservative free 09/13/2021,03/04/2021,01/26/2021,2020 Surgical History Surgery Date Site/Laterality Comments COLONOSCOPY PROCEDURE:COLONOSCOPY UPPER GASTROINTESTINAL ENDOSCOPY PROCEDURE:UPPER GASTROINTESTINAL ENDOSCOPY TOTAL HIP ARTHROPLASTY PROCEDURE:TOTAL HIP ARTHROPLASTY TONSILLECTOMY PROCEDURE:TONSILLECTOMY COLONOSCOPY 01/22/2024 N/A PROCEDURE:COLONOSCOPY;COMMENT :Procedure: COLONOSCOPY; Surgeon: Kartik Gomes MD; Location: [facility]; Service: Gastroenterology; Laterality: N/A; UPPER GASTROINTESTINAL ENDOSCOPY 01/22/2024 N/A PROCEDURE:UPPER GASTROINTESTINAL ENDOSCOPY;COMMENT:Procedure: UPPER ENDOSCOPY-EGD; Surgeon: Kartik Gomes MD; Location: [facility]; Service: Gastroenterology; Laterality: N/A; Medical History Medical History Date Comments Anxiety DX:Anxiety Depression DX:Depression Asthma DX:Asthma Adhd DX:ADHD Chronic constipation DX:Chronic constipation Lyme disease DX:Lyme disease Osteoarthritis DX:Osteoarthriti s Peripheral vascular disease (CMS/HCC) DX:Peripheral vascular disease (HCC) Difficulty swallowing liquids DX :Difficulty swallowing liquids Family History Medical History Relation Name Comments Cancer Mother Cancer Paternal Grandmother Relation Name Status Comments Mother Paternal Grandmother Social History Tobacco Use Types Packs/Day Years Used Date Smoking Tobacco: Never Smokeless Tobacco: Never Alcohol Use Standard Drinks/Week Comments Yes 0 (1 standard drink = 0.6 oz pur e alcohol) Sex and Gender Information Value Date Recorded Sex Assigned at Not on file Gender Identity Not on file Sexual Orientation Not on file Obstetrics History Plan of Treatment Health Maintenance Due Date Last Done Comments Breast Cancer Screening 1954 DTaP,Tdap,and Td Vaccines (1 - Tdap) 1973 Zoster Vaccines (1 of 2) 2004 Pneumococcal Vaccine: 65+ Years (1 of 1 - PCV) 2019 Colorectal Cancer Screening: Colonoscopy 06/29/2024 Depression Screening 06/29/2024 Falls Risk Assessment 06/29/2024 Hepatitis C Screening 06/29/2024 Osteoporosis Screening (Bone Density Screening) 06/29/2024 Social Influencers of Health Screening 06/29/2024 COVID-19 Vaccine ( season) 2024 02/10/2022, 09/13/2021, 03/04/2021, Additional history exists Influenza Vaccine (#1) 2024 RSV Immunization Patients 60+ Years Old (1 - 1-dose 75+ series) 2029 HIB Vaccines Aged Out No longer eligi ble based on patient's age to complete this topic HPV Vaccines Aged Out No longer eligi ble based on patient's age to complete this topic Hepatitis A Vaccines Aged Out No long er eligible based on patient's age to complete this topic Hepatitis B Vaccines Aged Out No long er eligible based on patient's age to complete this topic IPV Vaccines Aged Out No longer eligi ble based on patient's age to complete this topic MMR Vaccines Aged Out No longer eligi ble based on patient's age to complete this topic Meningococcal ACWY Vaccine Aged Out N o longer eligible based on patient's age to complete this topic RSV Immunization Patients Under 20 months Aged Out No longer eligible based on patient's age to complete this topic Varicella Vaccines Aged Out No longer eligible based on patient's age to complete this topic Care Teams Time Lock Expert Relationship Specialty Start Date End Date Donna Starks NP [address] [place] [address] PCP - General 01/20/24
--- OUTSIDE RECORDS SUMMARY | 2025-01-07 03:36 | XMS_ITS | Encounter Summary ---
Author Organization [facility] Address [address] [place] [address] Care Team Providers Care Automotive Instructor Name Role Phone Donna Starks APRN Primary Care Provider [phone] Jamie Cedillo MD Unavailable [phone] Kaitlin Zayas APRN Unavailable Nayeli Tucker LCSW Unavailable [phone] Encounter Details Date Type Department Care Team (Late st Contact Info) Description 05/11/2023 Scanned Document [address] [phone] Primary Care, Scan Social History Tobacco Use [...] Description 03/07/2025 10:00 AM EDT Telemedicine [facility] [address] [facility] [address] [place] [phone] Kartik Gomes MD [address] [facility] [address] [place] [address] documented as of this encounter Visit Diagnoses Not on filedocumented in this encounter Care Teams Automotive Instructor Relationship Specialty Start Date End Date Donna Starks APRN [address] [place] [address] PCP - General Family Medicine 10/13/22 Jamie Cedillo MD [address] [place] [address] Geriatric Medicine 03/01/24 Kaitlin Zayas APRN [address] [place] [address] Nurse Practitioner Psychiatry, General 05/24/24 Nayeli Tucker LCSW [address] [place] [address] Assistant Professor Of Business Social Work 11/15/24 documented as of this encounter
[2025-01-07 06:01] VITALS: BP 104/61; PULSE 72; RESP 12; TEMP 36.5; O2SAT 97
== END 2025-01-07 06:38 | disposition home or self-care (01) ==
PROVIDERS: Emergency Provider Internal Medicine; PCP Nurse Practitioner Acute Care
DX: R55 Syncope and collapse (principal); E86.0 Dehydration; N39.0 Urinary tract infection, site not specified; B96.20 Unspecified Escherichia coli [E. coli] as the cause of diseases classified elsewhere; Z03.818 Encounter for observation for suspected exposure to other biological agents ruled out
CPT/HCPCS: 0241U; 80053; 81001; 85025; 87086; 87088; 87186; 93005; 96360; 99284; 99285

== ENCOUNTER → 2025-01-07 00:58 | Outpatient (BNV) | payer MEDICARE, SELFPAY | PROVIDERS: Emergency Provider Internal Medicine; PCP Nurse Practitioner Acute Care; Visit Provider Internal Medicine Cardiovascular Disease | DX: R55 Syncope and collapse (principal) | CPT/HCPCS: 93010 ==